=== PATIENT | male | born 1965 | race Caucasian/White ===

== ENCOUNTER 2020-03-14 19:03 | Emergency (ER) | payer OTHER ==
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
[2020-03-14] MEDS ORDERED: CEPHALEXIN 250 MG CAP ONE ×2 (20:36→20:41)
== END 2020-03-14 21:19 | disposition home or self-care (01) ==
LOC: ER 19:03
DX: T23.202A Burn of second degree of left hand, unspecified site, initial encounter (principal); X08.8XXA Exposure to other specified smoke, fire and flames, initial encounter; Y93.9 Activity, unspecified; Y92.89 Other specified places as the place of occurrence of the external cause; I10 Essential (primary) hypertension; E11.9 Type 2 diabetes mellitus without complications
CPT/HCPCS: 99282

== ENCOUNTER 2020-09-14 11:59 | Inpatient (IN) | payer OTHER ==
--- OUTSIDE RECORDS SUMMARY | 2020-09-14 12:01 | XMS REPORT | Continuity of Care Document ---
:1965 Author Organization [facility] t Address [address] [place] [address] Care Team Providers Name Role Phone Luz Murdock MD Attending Clinician Willie GR Attending Clinician Room, Therapy [facility] Attending Clinician Unavailable Problems This patient has no known problems. Allergies, Adverse Reactions, Alerts This patient has no known allergies or adverse reactions. Medications This patient has no known medications. Procedures This patient has no known procedures. Encounters Start End Encounter Admission Attending Care Care Encounter Source Date/Time Date/Time Type Type Clinicians Facility Department ID 2020-04-06 2020-04-06 Telephone Ilir Murdock [id number] 00:00:00 00:00:00 Vinay [id number] [facility] [id number] 2020-04-04 2020-04-04 [facility] TapiaHermila [id number] 12:30:00 23:59:00 Encounter Ganesh Mclean [id number] [facility] [id number] 2020-03-21 2020-03-30 Ancillary Hermila Davidson [id number] 14:30:00 07:35:19 Visit Radha Mclean [id number] Therapy [facility] [id number] Results This patient has no known results.
[2020-09-14 12:55] LABS: Absolute Lymphocytes (CBC) 1.5 K/uL (0.7-4.9); Basophils % 1.5 % (0-1.3); Hematocrit 31.8 % (39.6-49.0); Lymphocytes % 34.1 % (15.3-44.8); MPV 9.1 fL (7.6-11.3); RBC Red Blood Cell Count 4.43 M/uL (4.33-5.43)
[2020-09-14] MEDS ORDERED: dilTIAZem HCL 25 MG/5 ML VIAL IV ONE (12:55)
[2020-09-14 12:57] LABS: Protime INR 1.29
[2020-09-14 13:13] LABS: ALT/SGPT 35 U/L (12-78); AST/SGOT 67 U/L (15-37); Albumin 3.6 g/dL (3.4-5.0); Alkaline Phosphatase 157 U/L (45-117); BUN Blood Urea Nitrogen 5 mg/dL (7-18); Bicarbonate 29 mmol/L (21-32); Bilirubin Direct 0.9 mg/dL (0-0.2); Bilirubin Total 1.6 mg/dL (0.2-1.0); Glucose Level 138 mg/dL (74-106); Magnesium 1.5 mg/dL (1.8-2.4); NT PRO-BNP 238 pg/mL (<125); Potassium 3.9 mmol/L (3.5-5.1); Protein, Total 7.5 g/dL (6.4-8.2); Sodium Level 139 mmol/L (136-145); Troponin (Emerg Dept Use Only) < 0.02 ng/mL (0.0-0.045)
--- NOTE | 2020-09-14 13:32 | RAD REPORT ---
EXAM DESCRIPTION: RAD - Chest Single View - 09/14/2020 1:14 pm CLINICAL HISTORY: CHEST PAIN, atrial fibrillation on pre-procedure EKG COMPARISON: None TECHNIQUE: AP portable chest image was obtained 09/14/2020 1:14 pm . FINDINGS: Lung volumes are relatively low with lung kingsley clear. Body habitus, portable technique a nd low lung volumes accentuate heart, vasculature and central lung markings. Significant failure or v olume overload are doubtful. Trachea is midline. Heart size is enlarged by exam limitations. No measu rable pleural effusion and no pneumothorax. No acute bony abnormality seen. No acute aortic findings suspected. IMPRESSION: No acute cardiopulmonary process.
[2020-09-14 13:33] LABS: Anisocytosis SLIGHT; Blood Morphology Comment NOTED (NOT SEEN); Hypochromasia 1+; Platelet Estimate ADEQ
[2020-09-14] MEDS ORDERED: Magnesium Sulfate 2gm IVPB 2 G/50 ML BAG IV ONE (13:35)
[2020-09-14] MEDS ORDERED: METOPROLOL TARTRATE 5 MG/5 ML INJ IV ONE (14:13)
--- NOTE | 2020-09-14 14:56 | ER ---
Nurse's Notes [facility] Name: Mohamud Garcia Age: 55 yrs Sex: Male : 1965 Arrival Date: 09/14/2020 Time: 12:01 Bed 19 Private MD: Diagnosis: Atrial Fibrillation with RVR Presentation: 09/14 12:18 Chief complaint: Patient states: "I was supposed to have a EGD today and they did an aa5 EKG on me and they told me to come here for A-fib". Pt denies any symptoms. 12:18 Coronavirus screen: Client denies travel out of the [place] in the last 14 days. The aa5 client reports previous COVID testing was negative. Date of collection: September 07, 2020. Ebola Screen: Patient negative for fever greater than or equal to 101.5 degrees Fahrenheit, and additional compatible Ebola Virus Disease symptoms. Initial Sepsis Screen: Does the patient meet any 2 criteria? No. Patient's initial sepsis screen is negative. Does the patient have a suspected source of infection? No. Patient's initial sepsis screen is negative. Risk Assessment: Do you want to hurt yourself or someone else? Patient reports no desire to harm self or others. Onset of symptoms was September 14, 2020. 12:18 Acuity: SUZI 2 aa5 12:18 Method Of Arrival: Ambulatory aa5 Historical: - Allergies: 12:19 No Known Allergies; aa5 - PMHx: 12:19 Diabetes - NIDDM; Gastric Reflux; Hypertension; aa5 - PSHx: 12:19 None; aa5 - Immunization history:: Adult Immunizations unknown. - Social history:: Smoking status: Patient denies any tobacco usage or history of. Screenin:55 Abuse screen: Denies threats or abuse. Nutritional screening: No deficits noted. ll1 Tuberculosis screening: No symptoms or risk factors identified. Fall Risk IV access (20 points). Total Villegas Fall Scale indicates No Risk (0-24 pts). Assessment: 12:54 General: Appears in no apparent distress. Behavior is calm, cooperative, appropriate ll1 for age. Pain: Denies pain. Pain: Pain does not radiate. Pain began unknown. Neuro: No deficits noted. Cardiovascular: Denies chest pain, shortness of breath, Heart tones S1 S2 Capillary refill < 3 seconds Clubbing of nail beds is absent JVD is absent Patient's skin is warm and dry. Pulses are all present. Rhythm is atrial fibrillation with rapid ventricular response Chest pain is denied. Respiratory: No deficits noted. Denies shortness of breath. 13:29 Reassessment: Patient and/or family updated on plan of care and expected duration. Pain ll1 level reassessed. Patient is alert, oriented x 3, equal unlabored respirations, skin warm/dry/pink. 14:30 Reassessment: Patient and/or family updated on plan of care and expected duration. Pain ll1 level reassessed. Patient is alert, oriented x 3, equal unlabored respirations, skin warm/dry/pink. 15:30 Reassessment: Patient and/or family updated on plan of care and expected duration. Pain ll1 level reassessed. Patient is alert, oriented x 3, equal unlabored respirations, skin warm/dry/pink. 16:30 Reassessment: Patient and/or family updated on plan of care and expected duration. Pain ll1 level reassessed. Patient is alert, oriented x 3, equal unlabored respirations, skin warm/dry/pink. Vital Signs: 12:18 BP 159 / 104; Pulse 140; Resp 18 S; Temp 98.4(TE); Pulse Ox 100% on R/A; Weight 99.79 aa5 kg (R); Height 5 ft. 7 in. (170.18 cm) (R); Pain 0/10; 12:53 BP 124 / 66; Pulse 113; Resp 18; Pulse Ox 99% ; ll1 14:13 BP 122 / 85; Pulse 130; Resp 18; ll1 15:04 BP 120 / 81; Pulse 100; Resp 18; Pulse Ox 100% on R/A; Pain 0/10; ll1 16:00 BP 125 / 84; Pulse 100; Resp 18; Pulse Ox 99% ; ll1 17:09 BP 112 / 87; Pulse 103; Resp 18; Temp 98.0; Pulse Ox 98% ; Pain 0/10; ll1 12:18 Body Mass Index 34.46 (99.79 kg, 170.18 cm) aa5 Vitals: 12:53 Cardiac Rhythm Assessment Atrial fibrillation W/rapid ventricular response. ll1 ED Course: 12:01 Patient arrived in ED. ds1 12:15 Inserted saline lock: 20 gauge in right antecubital area, using aseptic technique. ll1 Blood collected. 12:19 Arm band placed on. aa5 12:21 Triage completed. aa5 12:24 Carmelo Enriquez RN is Primary Nurse. 1 12:34 EKG completed in triage. Results shown to MD. aa5 12:35 Jerardo Holbrook PA is PHCP. jmm 12:35 Maximiliano Lerma MD is Attending Physician. [facility] 12:55 Patient has correct armband on for positive identification. Bed in low position. Call ll1 light in reach. Side rails up X 1. court recording monitor on. Pulse ox on. NIBP on. 12:55 Patient maintains SpO2 saturation greater than 95% on room air. ll1 13:14 XRAY Chest (1 view) In Process Unspecified. EDMS 13:37 EKG done, by ED staff, reviewed by Maximiliano Lerma MD. [facility] 14:53 Leonardo Saldaña MD is Hospitalizing Provider. [facility] 17:22 No provider procedures requiring assistance completed. Patient admitted, IV remains in ll1 place. Administered Medications: 12:52 Drug: Diltiazem 20 mg Route: IVP; Site: right antecubital; 1 13:29 Follow up: Response: No adverse reaction; RASS: Alert and Calm (0) [facility] 13:28 Drug: Magnesium Sulfate 2 grams Route: IVPB; Infused Over: 2 hrs; Site: right ll1 antecubital; 15:03 Follow up: Response: No adverse reaction; RASS: Alert and Calm (0); IV Status: ll1 Completed infusion; IV Intake: 50ml 14:13 Drug: Metoprolol 5 mg Route: IVP; Site: right antecubital; 1 17:23 Follow up: Response: No adverse reaction; RASS: Alert and Calm (0) [facility] Intake: 15:03 IV: 50ml; Total: 50ml. 1 Outcome: 14:55 Decision to Hospitalize by Provider. [facility] 17:23 Admitted to Med/surg accompanied by tech, via wheelchair, room RM 223, with chart, 1 Report called to NATALYA Chung on 17:23 Condition: stable 17:23 Instructed on the need for admit. 17:24 Patient left the ED. [facility] Signatures: Dispatcher [employer] EDMS MicJerardo araiza PA PA jmm Sanford, Demi ds1 Melly Ellis RN RN aa5 Danay Mccoy 3 Carmelo Enriquez RN RN ll1 Corrections: (The following items were deleted from the chart) 12:36 12:18 Chief complaint: Patient states: "I was supposed to have a ECG today and they did aa5 an EKG on me and they told me to come here for A-fib". Pt denies any symptoms. aa5
--- NOTE | 2020-09-14 14:56 | EDPHYS ---
Physician Documentation [facility] Name: Mohamud Garcia Age: 55 yrs Sex: Male : 1965 Arrival Date: 09/14/2020 Time: 12:01 Bed 19 Private MD: ED Physician Maximiliano Lerma HPI: 09/14 12:36 This 55 yrs old Male presents to ER via Ambulatory with complaints of jmm Irregular Pulse. 12:36 Context: The symptoms occur without known cause. Onset: The symptoms/episode jmm began/occurred at an unknown time. Duration: The patient or guardian reports a single episode. Modifying factors: The symptoms are aggravated by nothing. The symptoms are alleviated by nothing. Associated signs and symptoms: The patient has no apparent associated signs or symptoms. The patient has not experienced similar symptoms in the past. The patient has been recently seen by a physician:. Historical: - Allergies: 12:19 No Known Allergies; aa5 - PMHx: 12:19 Diabetes - NIDDM; Gastric Reflux; Hypertension; aa5 - PSHx: 12:19 None; aa5 - Immunization history:: Adult Immunizations unknown. - Social history:: Smoking status: Patient denies any tobacco usage or history of. ROS: 12:36 Constitutional: Negative for fever, chills, and weight loss, Cardiovascular: Negative jmm for chest pain, palpitations, and edema, Respiratory: Negative for shortness of breath, cough, wheezing, and pleuritic chest pain, Abdomen/GI: Negative for abdominal pain, nausea, vomiting, diarrhea, and constipation, Neuro: Negative for headache, weakness, numbness, tingling, and seizure. 12:36 All other systems are negative. Exam: 12:36 Constitutional: This is a well developed, well nourished patient who is awake, alert, jmm and in no acute distress. Head/Face: atraumatic. Eyes: EOMI, no conjunctival erythema appreciated ENT: Moist Mucus Membranes Neck: Trachea midline, Supple Chest/axilla: Normal chest wall appearance and motion. 12:36 Respiratory: Normal respirations, no respiratory distress appreciated Abdomen/GI: Non distended, soft Back: Normal ROM Skin: General appearance color normal MS/ Extremity: Moves all extremities, no obvious deformities appreciated, no edema noted to the lower extremities Neuro: Awake and alert, normal gait Psych: Behavior is normal, Mood is normal, Patient is cooperative and pleasant 12:36 Cardiovascular: Rate: tachycardic, Rhythm: irregular. Vital Signs: 12:18 BP 159 / 104; Pulse 140; Resp 18 S; Temp 98.4(TE); Pulse Ox 100% on R/A; Weight 99.79 aa5 kg (R); Height 5 ft. 7 in. (170.18 cm) (R); Pain 0/10; 12:53 BP 124 / 66; Pulse 113; Resp 18; Pulse Ox 99% ; ll1 14:13 BP 122 / 85; Pulse 130; Resp 18; ll1 15:04 BP 120 / 81; Pulse 100; Resp 18; Pulse Ox 100% on R/A; Pain 0/10; ll1 16:00 BP 125 / 84; Pulse 100; Resp 18; Pulse Ox 99% ; ll1 17:09 BP 112 / 87; Pulse 103; Resp 18; Temp 98.0; Pulse Ox 98% ; Pain 0/10; ll1 12:18 Body Mass Index 34.46 (99.79 kg, 170.18 cm) aa5 MDM: 12:39 Patient medically screened. [facility] 14:52 Data reviewed: vital signs, nurses notes. Counseling: I had a detailed discussion with [facility] the patient and/or guardian regarding: the historical points, exam findings, and any diagnostic results supporting the discharge/admit diagnosis, lab results, radiology results, the need for further work-up and treatment in the hospital. ED course: I discussed the patient with Dr. Saldaña whom accepted admission. . 09/14 12:36 Order name: Basic Metabolic Panel; Complete Time: 13:14 [facility] 09/14 12:36 Order name: CBC with Diff; Complete Time: 13:34 [facility] 09/14 12:36 Order name: LFT's; Complete Time: 13:14 [facility] 09/14 12:36 Order name: Magnesium; Complete Time: 13:14 [facility] 09/14 12:36 Order name: NT PRO-BNP; Complete Time: 13:14 [facility] 09/14 12:36 Order name: PT-INR; Complete Time: 13:08 [facility] 09/14 12:36 Order name: Troponin (emerg Dept Use Only); Complete Time: 13:14 [facility] 09/14 12:36 Order name: XRAY Chest (1 view); Complete Time: 13:34 [facility] 09/14 12:36 Order name: EKG; Complete Time: 12:36 [facility] 09/14 12:57 Order name: Manual Differential; Complete Time: 13:34 [facility] 09/14 13:47 Order name: EKG Electrocardiogram; Complete Time: 14:04 [facility] 09/14 12:36 Order name: Cardiac monitoring; Complete Time: 12:40 [facility] 09/14 12:36 Order name: EKG - Nurse/Tech; Complete Time: 12:40 [facility] 09/14 12:36 Order name: IV Saline Lock; Complete Time: 12:39 [facility] 09/14 12:36 Order name: Labs collected and sent; Complete Time: 12:39 [facility] 09/14 12:36 Order name: O2 Per Protocol; Complete Time: 12:39 [facility] 09/14 12:36 Order name: O2 Sat Monitoring; Complete Time: 12:39 [facility] 09/14 13:15 Order name: EKG - Nurse/Tech; Complete Time: 13:38 [facility] 09/14 14:24 Order name: EKG - Nurse/Tech; Complete Time: 15:05 [facility] 09/14 15:23 Order name: CONS Physician Consult EDAR Administered Medications: 12:52 Drug: Diltiazem 20 mg Route: IVP; Site: right antecubital; 1 13:29 Follow up: Response: No adverse reaction; RASS: Alert and Calm (0) ll1 13:28 Drug: Magnesium Sulfate 2 grams Route: IVPB; Infused Over: 2 hrs; Site: right ll1 antecubital; 15:03 Follow up: Response: No adverse reaction; RASS: Alert and Calm (0); IV Status: ll1 Completed infusion; IV Intake: 50ml 14:13 Drug: Metoprolol 5 mg Route: IVP; Site: right antecubital; 1 17:23 Follow up: Response: No adverse reaction; RASS: Alert and Calm (0) ll1 Disposition: 09/15 05:32 Co-signature as Attending Physician, Maximiliano Lerma MD I agree with the assessment and jacky plan of care. Disposition: 09/14/20 14:55 Hospitalization ordered by Leonardo Saldaña for Observation. Preliminary diagnosis is Atrial Fibrillation with RVR. - Bed requested for Telemetry/MedSurg (observation). - Status is Observation. ll1 - Condition is Stable. - Problem is new. - Symptoms have improved. Signatures: Dispatcher [employer] EDTeri Luna, RN Maximiliano Pinto MD MD cha Mickail, Joel, PA PA jmm Calderon, Audri, NATALYA HOANG aa5 Carmelo Enriquez, NATALYA RN ll1 Corrections: (The following items were deleted from the chart) 09/14 16:57 14:55 Hospitalization Ordered by Leonardo Saldaña MD for Observation. Preliminary diagnosis is Atrial Fibrillation with RVR. Bed requested for Telemetry/MedSurg (observation). Status is Observation. Condition is Stable. Problem is new. Symptoms have improved. [facility] 17:24 16:57 09/14/2020 14:55 Hospitalization Ordered by Leonardo Saldaña MD for Observation. ll1 Preliminary diagnosis is Atrial Fibrillation with RVR. Bed requested for Telemetry/MedSurg (observation). Status is Observation. Condition is Stable. Problem is new. Symptoms have improved. kl
--- NOTE | 2020-09-14 15:36 | P.HP ---
Certification for Inpatient Patient admitted to: Observation With expected LOS: <2 Midnights Practitioner: I am a practitioner with admitting privileges, knowledge of patient current condition, hospital course, and medical plan of care. Services: Services provided to patient in accordance with Admission requirements found in Title 42 Section 412.3 of the Code of Federal Regulations Patient History Date of Service: 09/14/20 History of Present Illness: 55yo male, PMH: HTN, DM2 (non-insulin), GERD, who was sent to ED from GI suite after found to be in afib with RVR. Patient reports he feels like his normal self, asymptomatic. Denies any palpitations, chest pain, chest pressure, shortness of breath. He reports no prior history of AFib. He was scheduled to undergo EGD to evaluate for his acid reflux, however this was canceled. Patient's heart rate was noted to 140s, received Cardizem in the ED with minimal improvement, and received IV Lopressor which brought patient's heart rate down to 100-120s. Patient still remains asymptomatic Blood work notable for microcytic anemia, End hypomagnesemia (1.5), negative troponin Allergies No Known Allergies Allergy (Unverified 12/11/18 11:59) - Past Medical/Surgical History -: Hypertension -: Diabetes mellitus type 2, [id number] -: GERD Past Surgical History: Patient denies surgical history - Family History Mother -: Hypertension - Social History Smoking Status: Never smoker Alcohol use: Yes Place of Residence: Home Review of Systems 10-point ROS is otherwise unremarkable Physical Examination - Physical Exam General: Alert, In no apparent distress, Oriented x3 HEENT: Mucous membr. moist/pink, Sclerae nonicteric Neck: Supple Respiratory: Clear to auscultation bilaterally, Normal air movement Cardiovascular: No edema, No murmurs, Irregular heart rate/rhythm (HR: 100-120s) Gastrointestinal: Soft and benign, Non-distended, No tenderness Musculoskeletal: No tenderness Integumentary: No rashes Neurological: Normal speech, Normal affect - Studies Laboratory Data (last 24 hrs) 09/14/20 12:35: PT 15.1 H, INR 1.29 09/14/20 12:35: WBC 4.4, Hgb 9.7 L, Hct 31.8 L, Plt Count 176 11/11/20 12:35: Sodium 139, Potassium 3.9, BUN 5 L, Creatinine 0.69, Glucose 138 H, Magnesium 1.5 L, Total Bilirubin 1.6 H, AST 67 H, ALT 35, Alkaline Phosphatase 157 H Assessment and Plan - Advance Directives Does patient have a Living Will: No Does patient have a Durable POA for Healthcare: No Physician Review Additional Text: New onset AFib, with RVR Hypertension Diabetes mellitus type 2. GERD -partially responded to IV lopressor in ED -cardiology consulted -start sotalol 80mg BID -check TTE and TSH -CHADSVASc: 2, reports no history of bleed -will start patient on xarelto for anticoagulation -hold antihypertensives at this time, pt with low-normal BP, did not take meds this AM -insulin sliding scale, hold home metformin Code: full VTE: Xarelto Dispo: anticipate dc home in 24-48hrs pending improvement of heart rate Time Spent Managing Pts Care (In Minutes): 55
[2020-09-14] MEDS: INSULIN -REGULAR HUMAN 50 UNIT/0.5 ML ML SQ SCH ×2 (17:42→20:57)
[2020-09-14 17:45] VITALS: BMI 34.4
[2020-09-14 17:51] VITALS: O2SAT 98
--- NOTE | 2020-09-14 18:03 | EKG ---
Test Date: 2020-09-14 Test Time: 12:31:35 Sample Cutter: MIROSLAVA MEASUREMENT RESULTS: Intervals: Rate: 146 MA: QRSD: 84 QT: 260 QTc: 405 [place]: P: MA: QRS: 59 T: 45 INTERPRETIVE STATEMENTS: Atrial fibrillation with rapid ventricular response Abnormal ECG No previous ECG available for comparison Electronically Signed On 09-14-20 18:02:30 FLAT BED KNITTER by Jan Colorado
--- NOTE | 2020-09-14 18:03 | EKG ---
Test Date: 2020-09-14 Test Time: 13:33:39 Data Analysis Intern: CHRISTOPHER MEASUREMENT RESULTS: Intervals: Rate: 130 [place]: QRSD: 70 QT: 310 QTc: 456 [place]: P: [place]: QRS: 57 T: 64 INTERPRETIVE STATEMENTS: Atrial fibrillation with rapid ventricular response Septal infarct, age undetermined Abnormal ECG Compared to ECG 09/14/2020 12:31:35 Myocardial infarct finding now present Electronically Signed On 09-14-20 18:02:26 PRODUCT SAFETY MANAGER by Jan Colorado
[2020-09-14] MEDS: SOTALOL HCL 80 MG TAB PO SCH (18:07)
[2020-09-14] MEDS: RIVAROXABAN 20 MG TABLET PO SCH (18:07)
[2020-09-14 19:02] LABS: Thyroid Stimulating Hormone 2.34 uIU/mL (0.360-3.740)
[2020-09-14 19:37] LABS: Urine Appearance CLEAR; Urine Bilirubin NEGATIVE (NEG); Urine Blood NEGATIVE (NEG); Urine Color YELLOW; Urine Glucose NEGATIVE (NEG); Urine Protein NEGATIVE (NEG); Urine pH 7.5 (5.0-7.0)
[2020-09-14 19:40] LABS: Urine Microscopic Reflex NO UMIC
[2020-09-14] MEDS ORDERED: INFLUENZA VACCINE (for 3y+) 0.5 ML DOSE IMVAC ONE (20:00)
[2020-09-15 04:43] LABS: Absolute Lymphocytes (CBC) 1.4 K/uL (0.7-4.9); Hematocrit 30.3 % (39.6-49.0); Lymphocytes % 32.5 % (15.3-44.8); MPV 8.7 fL (7.6-11.3)
[2020-09-15] MEDS: SOTALOL HCL 80 MG TAB PO SCH ×2 (05:17→17:04)
[2020-09-15 06:31] LABS: BUN Blood Urea Nitrogen 7 mg/dL (7-18); Bicarbonate 28 mmol/L (21-32); Ferritin 12.7 ng/mL (26-388); Glucose Level 122 mg/dL (74-106); Magnesium 1.5 mg/dL (1.8-2.4); Sodium Level 139 mmol/L (136-145); Transferrin 300 mg/dL (200-360)
[2020-09-15] MEDS ORDERED: Magnesium Sulfate 2gm IVPB 2 G/50 ML BAG IV ONE (06:52)
[2020-09-15 07:14] LABS: Phosphorus 3.7 mg/dL (2.5-4.9)
[2020-09-15] MEDS ORDERED: NA CHLORIDE 0.9% 250 ML ONE (07:28)
[2020-09-15] MEDS: INSULIN -REGULAR HUMAN 50 UNIT/0.5 ML ML SQ SCH ×3 (07:30→16:30)
--- NOTE | 2020-09-15 13:37 | ECHO ---
HEIGHT: 5 ft 7 in WEIGHT: 220 lb 0 oz DATE OF STUDY: 09/15/[address]: Leonardo Saldaña MD 2-DIMENSIONAL: YES M.MODE: YES DOPPLER: YES COLOR FLOW: YES TDS: NO PORTABLE: NO DEFINITY: NO BUBBLE STUDY: NO DIAGNOSIS: NEW ONSET ATRIAL FIBRILLATION CARDIAC HISTORY: CATHERIZATION: NO SURGERY: NO PROSTHETIC VALVE: NO PACEMAKER: NO MEASUREMENTS (cm) DIASTOLIC (NORMALS) SYSTOLIC (NORMALS) IVSd 1.1 (0.6-1.2) LA Diam 4.3 (1.9-4.0) LVEF 54% LVIDd 4.9 (3.5-5.7) LVIDs 3.5 (2.0-3.5) %FS 28% LVPWd 1.3 (0.6-1.2) Ao Diam 3.7 (2.0-3.7) 2 DIMENSIONAL ASSESSMENT: RIGHT ATRIUM: NORMAL LEFT ATRIUM: ENLARGED RIGHT VENTRICLE: NORMAL LEFT VENTRICLE: NORMAL TRICUSPID VALVE: NORMAL MITRAL VALVE: NORMAL PULMONIC VALVE: NORMAL AORTIC VALVE: NORMAL PERICARDIAL EFFUSION: NONE AORTIC ROOT: NORMAL LEFT VENTRICULAR WALL MOTION: NORMAL. DOPPLER/COLOR FLOW: NORMAL. COMMENTS: NORMAL LEFT VENTRICULAR EJECTION FRACTION 55-60%. NORMAL WALL MOTION. LEFT ATRIAL ENLARGEMENT. TECHNOLOGIST: ANDREW CARDENAS
[2020-09-15 16:59] VITALS: BP 147/99; TEMP 97.7
[2020-09-15] MEDS: RIVAROXABAN 20 MG TABLET PO SCH (17:04)
--- NOTE | 2020-09-15 21:34 | P.DS ---
"Admission Date: 09/14/20 Discharge Date: 09/15/20 Disposition: ROUTINE DISCHARGE Discharge Condition: GOOD Consultations: Cardiology - Dr. Colorado Procedures: CXR (09/14): no acute cardiopulmonary process TTE (09/14): normal LVEF 55-60%, normal wall motion. left atrial enlargement Problem list New onset AFib, with RVR Iron deficiency anemia (new diagnosis) Hypomagnesemia Hypertension Diabetes mellitus type 2, non-insulin dependent GERD Brief History of Present Illness: 55yo male, PMH: HTN, DM2 (non-insulin), GERD, who was sent to ED from GI suite after he was found to be in afib with RVR. Patient reports he feels like his normal self, asymptomatic. Denies any palpitations, chest pain, chest pressure, shortness of breath. He reports no prior history of AFib. He was scheduled to undergo EGD to evaluate for his acid reflux, however this was canceled. Patient's heart rate was noted to 140s, received Cardizem in the ED with minimal improvement, and received IV Lopressor which brought patient's heart rate down to 100-120s. Patient still remains asymptomatic. Blood work notable for microcytic anemia, hypomagnesemia (1.5), negative troponin Hospital Course: Patient was started on sotalol 80mg BID, cardiology was consulted. His heart rate improved and ranged from 90s-110s. He remained asymptomatic and was adamant on being discharged home today. He received 3 doses of sotalol, was asymptomatic, feeling well, so he was discharged home to have close follow up with cardiology, Dr. Colorado. He did undergo TTE which revealed left atrial enlargement. He has a CHADSVASc score of 2, and was started on Xarelto. Workup also notable for microcytic anemia consistent with moderate iron deficiency. He was offered IV iron replacement, however declined, and was amenable to PO replacement on discharge. He was also noted to be hypomagnesemic at 1.5 on admission, improved to 1.6 after 2g IV Mg replacement. He is discharged on magnesium supplementation and advised to f/u with PCP to check levels. Hgb: 9.7, MCV: 71.8, Hypochromasia noted Iron: 23 | TIBC: 420 | Transferrin % sat: 5.5 | Ferritin: 12.7 TSH: 2.34, Free T4: 1.4 Vital Signs/Physical Exam: Temp Pulse Resp BP Pulse Ox 97.7 F 115 H 16 147/99 H 98 09/15/20 16:00 09/15/20 16:00 09/15/20 16:00 09/15/20 16:00 09/15/20 16:00 General: Alert, In no apparent distress, Oriented x3, Obese HEENT: Mucous membr. moist/pink, Sclerae nonicteric Neck: Supple Respiratory: Clear to auscultation bilaterally, Normal air movement Cardiovascular: No edema, No murmurs, Irregular heart rate/rhythm (HR: 100) Gastrointestinal: Soft and benign, Non-distended, No tenderness Musculoskeletal: No tenderness Integumentary: No rashes Neurological: Normal speech, Normal affect Laboratory Data at Discharge: WBC 4.3 K/uL (4.3-10.9) 09/15/20 04:20 Hgb 9.3 g/dL (13.6-17.9) L 09/15/20 04:20 Hct 30.3 % (39.6-49.0) L 09/15/20 04:20 Plt Count 168 K/uL (152-406) 09/15/20 04:20 PT 15.1 SECONDS (9.5-12.5) H 09/14/20 12:35 INR 1.29 09/14/20 12:35 Sodium 139 mmol/L (136-145) 09/15/20 04:20 Potassium 4.0 mmol/L (3.5-5.1) 09/15/20 04:20 BUN 7 mg/dL (7-18) 09/15/20 04:20 Creatinine 0.73 mg/dL (0.55-1.3) 09/15/20 04:20 Glucose 122 mg/dL (74-106) H 09/15/20 04:20 Phosphorus 3.7 mg/dL (2.5-4.9) 09/15/20 04:20 Magnesium 1.6 mg/dL (1.8-2.4) L 09/15/20 16:31 Total Bilirubin 1.6 mg/dL (0.2-1.0) H 09/14/20 12:35 AST 67 U/L (15-37) H 09/14/20 12:35 ALT 35 U/L (12-78) 09/14/20 12:35 Alkaline Phosphatase 157 U/L (45-117) H 09/14/20 12:35 Home Medications: Amlodipine [Norvasc*] 5 mg PO DAILY 09/15/20 Ferrous Sulfate 325 mg PO DAILY #30 tablet 09/15/20 Lisinopril [Zestril] 10 mg PO DAILY 09/15/20 Magnesium Chloride [Magnesium] 64 mg PO DAILY 30 Days #30 tablet 09/15/20 Metformin HCl 1,000 mg PO BID 09/15/20 Omeprazole [Prilosec] 40 mg PO DAILY 09/15/20 Rivaroxaban [Xarelto] 20 mg PO DAILY 30 Days #30 tablet 09/15/20 Sotalol HCl [Betapace*] 80 mg PO BID 30 Days #60 tab 09/15/20 New Medications: Sotalol HCl [Betapace*] 80 mg PO BID 30 Days #60 tab Ferrous Sulfate 325 mg PO DAILY #30 tablet Magnesium Chloride [Magnesium] 64 mg PO DAILY 30 Days #30 tablet Rivaroxaban [Xarelto] 20 mg PO DAILY 30 Days #30 tablet Patient Discharge Instructions: follow up with PCP within 1 week - recheck Magnesium levels, and continue iron deficiency treatment. follow up with Dr. Colorado within 1-2 weeks. call his office to schedule appointment. --medications on discharge: Xarelto 20mg daily (blood thinner) -- Sotalol 80mg twice a day -- Magnesium once a day -- Iron 325mg once a day Diet: Regular Activity: Ad palak Followup: Claudio Begum PA [Primary Care Provider] - Time spent managing pt's care (in minutes): 35"
--- NOTE | 2020-09-18 03:06 | CON ---
Date of Consultation: 09/14/2020 Reason For Consultation: Atrial fibrillation with rapid ventricular response. History Of Present Illness: Mr. Garcia is a 55-year-old white male, who has a history of diabetes, g astroesophageal reflux disease, and hypertension, no previous coronary artery disease, came in with a regular pulse, was found to be in atrial fibrillation at a rate of 140. He had a blood pressure of 159/104. He was having palpitations and shortness of breath, but denied any chest pain, nausea, vomi ting, diaphoresis, PND, orthopnea, pedal edema, or syncope. Denied any fever or chills. Past Medical History: As stated above. Allergies: NONE. Review of Systems: Negative. Social History: Negative. Family History: Noncontributory. Medications: At home included amlodipine, iron, lisinopril, magnesium, metformin, and Prilosec. Physical Examination: VITAL SIGNS: He was in atrial fibrillation. Otherwise, vital signs stable. Afebrile. HEENT: Negative. Neck: Supple with no bruit. Chest: Clear to auscultation and percussion. Cardiac: Regular rhythm and rate. No murmurs, gallops, or rubs. Abdomen: Benign. Extremities: No clubbing, cyanosis, or edema. Diagnostic Data: He had a magnesium 1.6, that needs to be supplemented. His glucose was 132. Rest of the blood work was fairly unremarkable except for some mild anemia of 9.7. His creatinine was 0.7 3. Impression And Plan: Paroxysmal atrial fibrillation. We should put him on sotalol 80 mg 1 p.o. twic e a day. We should start him Xarelto 20 daily. We should get an echocardiogram. Check his TSH. Co ntinue his other medication for reflux, diabetes, and hypertension. I am hoping that this will conve rt him in the next week or so. I will see him in the office in the next week or so and if he remains in atrial fibrillation, we will consider a direct current cardioversion. JENNIFER/AUGUSTUS Voice ID: [id number] Report ID: [id number]
--- NOTE | 2020-09-18 07:54 | EKG ---
Test Date: 2020-09-14 Test Time: 14:40:33 Securities Broker: CHRISTOPHER MEASUREMENT RESULTS: Intervals: Rate: 100 [place]: QRSD: 86 QT: 320 QTc: 412 [place]: P: WI: QRS: 52 T: 50 INTERPRETIVE STATEMENTS: Atrial fibrillation Abnormal ECG Compared to ECG 09/14/2020 13:33:39 Myocardial infarct finding no longer present Electronically Signed On 09-18-20 07:42:42 [employer] PIPE MANUFACTURING SUPERVISOR by Jan Colorado
== END 2020-09-15 18:33 | disposition home or self-care (01) | DRG 310 ==
LOC: ER 11:59 → ERHOLD 15:21 → 2ND 17:17 → OBSVTOIN 23:13
PROVIDERS: ADMIT Hospitalist; ATTEND Hospitalist
DX: I48.0 Paroxysmal atrial fibrillation (principal); E11.9 Type 2 diabetes mellitus without complications; I10 Essential (primary) hypertension; K21.9 Gastro-esophageal reflux disease without esophagitis; D50.9 Iron deficiency anemia, unspecified; E83.42 Hypomagnesemia; Z53.29 Procedure and treatment not carried out because of patient's decision for other reasons; Z20.828 Contact with and (suspected) exposure to other viral communicable diseases
CPT/HCPCS: 36415; 71045; 80048; 80076; 81003; 82728; 82947; 83540; 83735; 83880; 84100; 84439; 84443; 84466; 84484; 85025; 85610; 93005; 93306; 94760; 96365; 96366; 96375; 99285; G0378; J3475; J7050; U0002

== ENCOUNTER 2020-10-19 06:28 | Day surgery (SDC) | payer OTHER ==
[2020-10-14 15:27] LABS: Protime INR 2.32
[2020-10-14 15:32] LABS: BUN Blood Urea Nitrogen 7 mg/dL (7-18); Bicarbonate 31 mmol/L (21-32); Glucose Level 119 mg/dL (74-106); Potassium 3.8 mmol/L (3.5-5.1); Sodium Level 140 mmol/L (136-145)
[2020-10-14 16:39] LABS: Absolute Lymphocytes (CBC) 1.2 K/uL (0.7-4.9); Basophils % 1.9 % (0-1.3); Hematocrit 31.3 % (39.6-49.0); Lymphocytes % 27.9 % (15.3-44.8); RBC Red Blood Cell Count 4.25 M/uL (4.33-5.43)
[2020-10-14 21:16] LABS: Anisocytosis 2+; Blood Morphology Comment NOTED (NOT SEEN); Hypochromasia 1+; Platelet Estimate ADEQ; Polychromasia 1+; White Blood Cell Scan OK (OK)
--- OUTSIDE RECORDS SUMMARY | 2020-10-19 06:29 | XMS REPORT | Continuity of Care Document ---
:1965 Author Organization [facility] t Address [address] [place] [address] Care Team Providers Name Role Phone Luz Murdock MD Attending Clinician Willie GR Attending Clinician Room, Therapy [facility] Attending Clinician Unavailable Problems This patient has no known problems. Allergies, Adverse Reactions, Alerts This patient has no known allergies or adverse reactions. Medications This patient has no known medications. Procedures This patient has no known procedures. Encounters Start End Encounter Admission Attending Care Care Encounter Source Date/Time Date/Time Type Type Clinicians Facility Department ID 2020-04-06 2020-04-06 Telephone Ilir Murdock [id number] 00:00:00 00:00:[id number] [facility] [id number] 2020-04-04 2020-04-04 [facility] TapiaHermila [id number] 12:30:00 23:59:00 Encounter Ganesh Mclean [id number] [facility] [id number] 2020-03-21 2020-03-30 Ancillary Hermila Davidson [id number] 14:30:00 07:35:19 Visit Radha Mclean [id number] Therapy [facility] [id number] Results This patient has no known results.
[2020-10-19] MEDS ORDERED: NA CHLORIDE 0.9% 500 ML ONE (07:32)
[2020-10-19] MEDS ORDERED: FLUMAZENIL 0.1 MG/ML (5 mL VIAL) IV ONE (08:35)
[2020-10-19] MEDS ORDERED: MIDAZOLAM HCL 5 MG/5 ML INJ ONE (08:35)
[2020-10-19] MEDS ORDERED: ATROPINE SULF 1 MG/10 ML SYR IV ONE (08:35)
[2020-10-19] MEDS ORDERED: MIDAZOLAM HCL 2 MG/2 ML INJ ONE ×3 (08:50→08:54)
[2020-10-19 09:42] VITALS: TEMP 97.9
[2020-10-19 10:45] VITALS: BP 151/75; O2SAT 97
--- NOTE | 2020-10-19 12:17 | OP ---
Date of Procedure: 10/19/2020 Surgeon: Jan Colorado MD Procedure: Direct current cardioversion. Indication: Atrial fibrillation. Mr. Garcia is a 55-year-old white male with new onset atrial fibri llation, has been on sotalol and Xarelto for about 3 weeks. Remained in atrial fibrillation with sym ptoms, rapid ventricular response. Admitted to the hospital today as an outpatient to the cath lab tech. Procedure In Detail: He was given a total of 14 mg of Versed for IV sedation. He received 1 shock o f 100 joules and converted to sinus rhythm. There were no complications. The patient tolerated the procedure well. Total conscious sedation was 30 minutes. Final Diagnosis: Successful cardioversion from atrial fibrillation to sinus rhythm. He will continue sotalol. He will continue Xarelto. He will come to see me in the office in the nex t week or 2. He can go home after he wakes up. The case was discussed with his son. JENNIFER/AUGUSTUS Voice ID: [id number] Report ID: [id number]
== END 2020-10-19 10:21 | disposition home or self-care (01) ==
LOC: CCL 06:28
DX: I48.19 Other persistent atrial fibrillation (principal); Z20.828 Contact with and (suspected) exposure to other viral communicable diseases; I10 Essential (primary) hypertension; E78.2 Mixed hyperlipidemia; E11.9 Type 2 diabetes mellitus without complications; K21.9 Gastro-esophageal reflux disease without esophagitis; E66.9 Obesity, unspecified; Z68.37 Body mass index [BMI] 37.0-37.9, adult; Z79.84 Long term (current) use of oral hypoglycemic drugs; Z79.01 Long term (current) use of anticoagulants
CPT/HCPCS: 93005; 85025; 80048; 36415; 85610; 82947; 85730; 92960; U0002; J2250 ×4; J7040

== ENCOUNTER 2021-10-31 12:16 | Inpatient (IN) | payer OTHER ==
--- OUTSIDE RECORDS SUMMARY | 2021-10-31 12:19 | XMS REPORT | Continuity of Care Document ---
:1965 Author Organization [facility] t Address [address] [place] [address] Dr. Koroma [address] [place] [id number] Care Team Providers Name Role Phone Luz MURDOCK Attending Clinician Unavailable Luz Murdock MD Attending Clinician Milla GR Attending Clinician MILLA Attending Clinician Unavailable Room, Therapy Tub Attending Clinician Unavailable Comfort GR L Attending Clinician Jose David CAREY Attending Clinician Unavailable Jose David Carey MD Attending Clinician Payers Payer Name Policy Type Policy Number Effective Date Expiration Date [facility] [id number] 2019 PPO/POS 00:00:00 Problems Condition Condition Condition Status Onset Resolution Last Treating Co mments Source Name Details Category Date Date Treatment Clinician Date No known No known Disease Unive rs active active ity of problems problems [facility] Allergies, Adverse Reactions, Alerts Allergy Allergy Status Severity Reaction(s) Onset Inactive Treating Comm ents Source Name Type Date Date Clinician NO KNOWN Drug Active Univers ALLERGIE Class ity of S [facility] Social History Social Habit Start Date Stop Date Quantity Comments Source Sex Assigned At [facility] Branch Exposure to Not sure [facility] SARS-CoV-2 (event) Medica l Branch Alcohol intake 2020-04-04 2020-04-04 [facility] 00:00:00 00:00:00 [facility] Smoking Status Start Date Stop Date Source Never smoker [facility] Medications Ordered Filled Start Stop Current Ordering Indication Dosage Frequency Signature Comments Components Source Medication Medication Date Date Medication? Clinician (SIG) Name Name sulfamethox Yes [id number] 1{tbl} Take 1 Univers azole-trime 5-18 tablet by ity of thoprim 00:00: mouth 2 [place] (BACTRIM 00 (two) Medical DS) 800-160 times Branch mg per daily. tablet sulfamethox 2020-0 Yes [id number] 1{tbl} Take 1 Univers azole-trime 5-18 tablet by ity of thoprim 00:00: mouth 2 [place] (BACTRIM 00 (two) Medical DS) 800-160 times Branch mg per daily. tablet sulfamethox 2020-0 Yes [id number] 1{tbl} Take 1 Univers azole-trime 5-18 tablet by ity of thoprim 00:00: mouth 2 [place] (BACTRIM 00 (two) Medical DS) 800-160 times Branch mg per daily. tablet sulfamethox 2020-0 Yes [id number] 1{tbl} Take 1 Univers azole-trime 5-18 tablet by ity of thoprim 00:00: mouth 2 [place] (BACTRIM 00 (two) Medical DS) 800-160 times Branch mg per daily. tablet sulfamethox 2020-0 Yes [id number] 1{tbl} Take 1 Univers azole-trime 5-18 tablet by ity of thoprim 00:00: mouth 2 [place] (BACTRIM 00 (two) Medical DS) 800-160 times Branch mg per daily. tablet FENTanyl 2020-0 2020- No 400ug 400 mcg, Uni vers (ACTIQ) 5-12 05-12 Buccal, ity of lollipop 18:15: 16:45 ONCE, 1 [place] 400 mcg 00 :00 dose, [facility] 03/15/20 at Branch 1315, Routine amLODIPine 2020-0 Yes 5mg Take 5 mg Un catrachito 5 mg tablet 5-12 by mouth ity of 16:35: daily. [address] lisinopril 2020-0 Yes 10mg Take 10 mg U nivers 10 mg 5-12 by mouth ity of tablet 16:35: daily. [address] amLODIPine 2020-0 Yes 5mg Take 5 mg Un catrachito 5 mg tablet 5-12 by mouth ity of 16:35: daily. [address] lisinopril 2020-0 Yes 10mg Take 10 mg U nivers 10 mg 5-12 by mouth ity of tablet 16:35: daily. [address] amLODIPine 2020-0 Yes 5mg Take 5 mg Un catrachito 5 mg tablet 5-12 by mouth ity of 16:35: daily. [address] lisinopril 2020-0 Yes 10mg Take 10 mg U nivers 10 mg 5-12 by mouth ity of tablet 16:35: daily. [address] amLODIPine 2020-0 Yes 5mg Take 5 mg Un catrachito 5 mg tablet 5-12 by mouth ity of 16:35: daily. [address] lisinopril 2020-0 Yes 10mg Take 10 mg U nivers 10 mg 5-12 by mouth ity of tablet 16:35: daily. [address] amLODIPine 2020-0 Yes 5mg Take 5 mg Un catrachito 5 mg tablet 5-12 by mouth ity of 16:35: daily. [address] lisinopril 2020-0 Yes 10mg Take 10 mg U nivers 10 mg 5-12 by mouth ity of tablet 16:35: daily. [address] amLODIPine 2020-0 Yes 5mg Take 5 mg Un catrachito 5 mg tablet 5-12 by mouth ity of 16:35: daily. [address] lisinopril 2020-0 Yes 10mg Take 10 mg U nivers 10 mg 5-12 by mouth ity of tablet 16:35: daily. [address] amLODIPine 2020-0 Yes 5mg Take 5 mg Un catrachito 5 mg tablet 5-12 by mouth ity of 16:35: daily. [address] lisinopril 2020-0 Yes 10mg Take 10 mg U nivers 10 mg 5-12 by mouth ity of tablet 16:35: daily. [address] amLODIPine 2020-0 Yes 5mg Take 5 mg Un catrachito 5 mg tablet 5-12 by mouth ity of 16:35: daily. [address] lisinopril 2020-0 Yes 10mg Take 10 mg U nivers 10 mg 5-12 by mouth ity of tablet 16:35: daily. [address] amLODIPine 2020-0 Yes 5mg Take 5 mg Un catrachito 5 mg tablet 5-12 by mouth ity of 16:35: daily. [address] lisinopril 2020-0 Yes 10mg Take 10 mg U nivers 10 mg 5-12 by mouth ity of tablet 16:35: daily. [place] 38 [facility] Branch sulfamethox 2020-0 2020- No [id number] 1{tbl} Take 1 Univers azole-trime 5-12 05-20 tablet by it y of thoprim 00:00: 04:59 mouth 2 [place] (BACTRIM 00 :00 (two) Medical DS) 800-160 times Branch mg per daily for tablet 7 days. sulfamethox 2020-0 2020- No [id number] 1{tbl} Take 1 Univers azole-trime 5-12 05-20 tablet by it y of thoprim 00:00: 04:59 mouth 2 [place] (BACTRIM 00 :00 (two) Medical DS) 800-160 times Branch mg per daily for tablet 7 days. sulfamethox 2020-0 2020- No [id number] 1{tbl} Take 1 Univers azole-trime 5-12 05-20 tablet by it y of thoprim 00:00: 04:59 mouth 2 [place] (BACTRIM 00 :00 (two) Medical DS) 800-160 times Branch mg per daily for tablet 7 days. sulfamethox 2020-0 2020- No [id number] 1{tbl} Take 1 Univers azole-trime 5-12 05-20 tablet by it y of thoprim 00:00: 04:59 mouth 2 [place] (BACTRIM 00 :00 (two) Medical DS) 800-160 times Branch mg per daily for tablet 7 days. sulfamethox 2020-0 2020- No [id number] 1{tbl} Take 1 Univers azole-trime 5-12 05-20 tablet by it y of thoprim 00:00: 04:59 mouth 2 [place] (BACTRIM 00 :00 (two) Medical DS) 800-160 times Branch mg per daily for tablet 7 days. sulfamethox 2020-0 2020- No [id number] 1{tbl} Take 1 Univers azole-trime 5-12 05-20 tablet by it y of thoprim 00:00: 04:59 mouth 2 [place] (BACTRIM 00 :00 (two) Medical DS) 800-160 times Branch mg per daily for tablet 7 days. sulfamethox 2020-0 2020- No [id number] 1{tbl} Take 1 Univers azole-trime 5-12 05-20 tablet by it y of thoprim 00:00: 04:59 mouth 2 [place] (BACTRIM 00 :00 (two) Medical DS) 800-160 times Branch mg per daily for tablet 7 days. cephALEXin 2020-0 Yes Univers 250 mg 5-11 ity of capsule 00:00: [place] [facility] Branch cephALEXin 2020-0 Yes Univers 250 mg 5-11 ity of capsule 00:00: [place] [address] Medical Branch cephALEXin 2020-0 Yes Univers 250 mg 5-11 ity of capsule 00:00: [address] Branch cephALEXin 2020-0 Yes Univers 250 mg 5-11 ity of capsule 00:00: [address] Branch cephALEXin 2020-0 Yes Univers 250 mg 5-11 ity of capsule 00:00: [address] Branch cephALEXin 2020-0 Yes Univers 250 mg 5-11 ity of capsule 00:00: [address] cephALEXin 2019-0 Yes Univers 250 mg 5-11 ity of capsule 00:00: [address] Branch cephALEXin 2020-0 Yes Univers 250 mg 5-11 ity of capsule 00:00: [address] cephALEXin 2020-0 Yes Univers 250 mg 5-11 ity of capsule 00:00: [address] omeprazole 2020-0 Yes TK 1 C PO Un catrachito 40 mg 4-24 QD 30 MIN ity of capsule 00:00: [address] metFORMIN 2020-0 Yes TK 1 T PO Uni vers 1,000 mg 4-24 BID WAC ity of tablet 00:00: [address] omeprazole 2020-0 Yes TK 1 C PO Un catrachito 40 mg 4-24 QD 30 MIN ity of capsule 00:00: [address] metFORMIN 2020-0 Yes TK 1 T PO Uni vers 1,000 mg 4-24 BID WAC ity of tablet 00:00: [address] omeprazole 2020-0 Yes TK 1 C PO Un catrachito 40 mg 4-24 QD 30 MIN ity of capsule 00:00: [address] metFORMIN 2020-0 Yes TK 1 T PO Uni vers 1,000 mg 4-24 BID WAC ity of tablet 00:00: [address] omeprazole 2020-0 Yes TK 1 C PO Un catrachito 40 mg 4-24 QD 30 MIN ity of capsule 00:00: B DAWIT [place] 00 Medical Branch metFORMIN 2020-0 Yes TK 1 T PO Uni vers 1,000 mg 4-24 BID WAC ity of tablet 00:00: [place] [facility] omeprazole 2020-0 Yes TK 1 C PO Un catrachito 40 mg 4-24 QD 30 MIN ity of capsule 00:00: B [facility] Medical Branch metFORMIN 2020-0 Yes TK 1 T PO Uni vers 1,000 mg 4-24 BID WAC ity of tablet 00:00: [place] [facility] omeprazole 2020-0 Yes TK 1 C PO Un catrachito 40 mg 4-24 QD 30 MIN ity of capsule 00:00: B [facility] Medical Branch metFORMIN 2020-0 Yes TK 1 T PO Uni vers 1,000 mg 4-24 BID WAC ity of tablet 00:00: [place] [facility] [place] omeprazole 2020-0 Yes TK 1 C PO Un catrachito 40 mg 4-24 QD 30 MIN ity of capsule 00:00: B [facility] Medical Branch metFORMIN 2020-0 Yes TK 1 T PO Uni vers 1,000 mg 4-24 BID WAC ity of tablet 00:00: [place] [facility] omeprazole 2020-0 Yes TK 1 C PO Un catrachito 40 mg 4-24 QD 30 MIN ity of capsule 00:00: B [facility] Medical Branch metFORMIN 2020-0 Yes TK 1 T PO Uni vers 1,000 mg 4-24 BID WAC ity of tablet 00:00: [address] metFORMIN 2020-0 Yes TK 1 T PO Uni vers 1,000 mg 4-24 BID WAC ity of tablet 00:00: [address] omeprazole 2020-0 Yes TK 1 C PO Un catrachito 40 mg 4-24 QD 30 MIN ity of capsule 00:00: B [facility] Vital Signs Vital Name Observation Time Observation Value Comments Source Systolic blood 2020-04-04 17:53:00 166 mm[Hg] Univer sity of pressure [facility] Diastolic blood 2020-04-04 17:53:00 85 mm[Hg] Unive rsity of [facility] Heart rate 2020-04-04 17:53:00 92 /min [facility] Body temperature 2020-04-04 17:53:00 36.06 [facility] Respiratory rate 2020-04-04 17:53:00 14 /min Univ ersity of [place] [facility] Body weight 2020-04-04 17:53:00 102.967 kg Universi ty of [place] [facility] Oxygen saturation in 2020-04-04 17:53:00 96 /min University of Arterial blood by [facility] Pulse oximetry Branch Systolic blood 2020-04-04 17:53:00 166 mm[Hg] Univer sity of pressure [place] [facility] Diastolic blood 2020-04-04 17:53:00 85 mm[Hg] Unive rsity of pressure [place] [facility] Heart rate 2020-04-04 17:53:00 92 /min [facility]i ty [facility] [place] [facility] Body temperature 2020-04-04 17:53:00 36.06 Zakia Univ ersity of [place] [facility] Respiratory rate 2020-04-04 17:53:00 14 /min Univ ersity of [place] [facility] Body weight 2020-04-04 17:53:00 102.967 kg Universi ty of [place] [facility] Oxygen saturation in 2020-04-04 17:53:00 96 /min University of Arterial blood by [facility] Pulse oximetry Branch Systolic blood 2020-03-22 14:17:00 178 mm[Hg] Univer sity of pressure [place] [facility] Diastolic blood 2020-03-22 14:17:00 99 mm[Hg] Unive rsity of pressure [place] [facility] Body weight 2020-03-22 14:17:00 105.416 kg [facility]i ty [facility] [place] [facility] Heart rate 2020-03-21 18:54:00 101 /min Universi ty of [place] [facility] Systolic blood 2020-03-15 16:31:00 166 mm[Hg] Univer sity of pressure [place] [facility] Diastolic blood 2020-03-15 16:31:00 87 mm[Hg] Unive rsity of pressure [place] [facility] Heart rate 2020-03-15 16:31:00 87 /min [facility] ty [facility] [place] [facility] Body temperature 2020-03-15 16:31:00 36.56 Zakia Univ ersity of [place] [facility] Respiratory rate 2020-03-15 16:31:00 14 /min Univ ersity of [place] [facility] Body weight 2020-03-15 16:31:00 95.255 kg Universi ty [facility] [place] [facility] Oxygen saturation in 2020-03-15 16:31:00 98 /min University of Arterial blood by [facility] Pulse oximetry Branch Procedures Procedure Date / Time Performing Clinician Source Performed NO SHOW OR MISSED 2020-04-04 19:05:01 Doctor Unasssrikanth, [facility] APPOINTMENT POLICY [facility] ACKNOWLEDGEMENT NOTICE OF PRIVACY 2020-04-04 19:01:04 Doctor Unasssrikanth, [facility] PRACTICES [facility] CONSENT/REFUSAL FOR 2020-04-04 19:00:48 Doctor Marta [facility] DIAGNOSIS AND TREATMENT [facility] ASSIGNMENT OF BENEFITS 2020-04-04 19:00:31 Doctor Unassigned, [facility] REFERRAL OCCUPATIONAL 2020-04-04 00:00:00 Toney Abdalla [facility] REFERRAL OCCUPATIONAL 2020-03-21 00:00:00 Alex Clemens [facility] REFERRAL OCCUPATIONAL 2020-03-15 00:00:00 Pradeep Leal [facility] Encounters Start End Encounter Admission Attending Care Care Encounter Source Date/Time Date/Time Type Type Clinicians Facility Department ID 2020-04-21 2020-04-21 Outpatient R [facility] [id number] Univers 12:30:00 12:30:00 [id number] ity [facility] 2020-04-21 2020-04-21 Outpatient R ILIR MURDOCK [facility] [id number] Univers 12:30:00 12:30:00 ity [facility] 2020-04-06 2020-04-06 Telephone Ilir Murdock [id number] 00:00:00 00:00:00 Vinay [id number] [facility] [id number] [facility] 2020-04-06 2020-04-06 Telephone Ilir Murdock [id number] [facility] 00:00:00 00:00:00 Vinay [id number] it y [facility] [id number] Osmin as [id number] [address] 2020-04-04 2020-04-04 [facility] Hermila Tapia [id number] 12:30:00 23:59:00 Encounter Ganesh Vinay [id number] [place] [id number] 2020-04-04 2020-04-04 Hospital Ganesh Tapia [id number] Univers 12:30:00 23:59:00 Encounter Ilir Murdock Vinay [id number] ity [facility] [id number] Osmin as [id number] [address] 2020-04-04 2020-04-04 Outpatient R [facility] [id number] Univers 12:30:00 12:30:00 ity [facility] 2020-04-04 2020-04-04 [facility] [id number] Univers 12:30:00 12:30:00 GANESH michael [facility] 2020-04-04 2020-04-04 Outpatient R ILIR MURDOCK [facility] [id number] Univers 11:15:00 11:15:00 ity [facility] 2020-03-21 2020-03-30 Ancillary Room, Hermila [id number] 14:30:00 07:35:19 Visit Lani-Occup Vinay [id number] Therapy Tub [place] [id number] 2020-03-21 2020-03-30 Ancillary Room, Lani-Occup Therapy Tub [place] [id number] Univers 14:30:00 07:35:19 Visit Babatunde Moyer [id number] [place] [id number] Osmin as [id number] [address] 2020-03-29 2020-03-29 Outpatient R [facility] [id number] Univers 12:30:00 12:30:00 [id number] ity [facility] 2020-03-29 2020-03-29 [facility] [id number] Univers 12:30:00 12:30:00 JARON sutherland [facility] 2020-03-21 2020-03-21 [facility] Hermila Carey [id number] Univers 12:30:00 23:59:00 Encounter Jaron Mclean [id number] ity of Hospital [id number] [place] [id number] [address] 2020-03-21 2020-03-21 Outpatient R [facility] [id number] Univers 12:30:00 12:30:00 [id number] ity [facility] 2020-03-21 2020-03-21 Outpatient R AURELIO [facility] [id number] Univers 12:30:00 12:30:00 JARON thomasy [facility] 2020-03-18 2020-03-18 Outpatient R [facility] [id number] Univers 12:30:00 12:30:00 [id number] ity [facility] 2020-03-18 2020-03-18 Outpatient R MILLA [facility] [id number] Univers 12:30:00 12:30:00 GANESH sutherland [facility] 2020-03-17 2020-03-17 Telephone Hermila Tapia [id number] Univers 00:00:00 00:00:00 Ganesh Mclean [id number] it y of Hospital [id number] [place] [id number] [address] 2020-03-15 2020-03-15 [facility] Hermila Tapia [id number] Univers 11:27:00 23:59:00 Encounter Ganesh Mclean [id number] ity of Hospital [id number] [place] as [id number] [facility] [address] [place] 2020-03-15 2020-03-15 Ancillary Room, Lani-Occup Therapy [facility] [id number] Univers 16:34:10 17:34:10 Visit Ganesh Tapia [id number] ity of [facility] [id number] Osmin as [id number] [facility] [address] [place] 2020-03-15 2020-03-15 Outpatient R MILLA [facility] [id number] Univers 14:00:00 14:00:00 GANESH sutherland [facility] 2020-03-15 2020-03-15 Outpatient R [facility] [id number] Univers 12:30:00 12:30:00 [id number] koko of [facility] 2020-03-15 2020-03-15 Outpatient Amanda TAPIA [facility] [id number] Univers 11:27:25 11:27:25 GANESH sutherland [facility] Results Test Description Test Time Test Comments Results Result Sourc e Comments REFERRAL 2020-04-04 Consult [employer] 00:00:00 received and [place] [facility] THERAPY chart reviewed Branch via EPIC. ?Please refer to progress note for details. Jelani [phone] pgr. REFERRAL 2020-03-21 Consult [facility] [employer] 00:00:00 received and [place] [facility] THERAPY EPIC reviewed. Branch ?Please refer to progress note for details. Jelani [phone] pgr. REFERRAL 2020-03-15 Consult [employer] 00:00:00 received and [place] Medi sommer THERAPY chart reviewed Branch via EPIC. ?Please refer to progress note for details. Jelani [phone] pgr.
[2021-10-31 14:59] LABS: Absolute Lymphocytes (CBC) 1.2 K/uL (0.7-4.9); Hematocrit 36.5 % (39.6-49.0); MPV 7.9 fL (7.6-11.3); Protime INR 1.26; RBC Red Blood Cell Count 4.51 M/uL (4.33-5.43)
[2021-10-31 15:29] LABS: ALT/SGPT 32 U/L (12-78); AST/SGOT 46 U/L (15-37); Albumin 3.5 g/dL (3.4-5.0); Alkaline Phosphatase 123 U/L (45-117); BUN Blood Urea Nitrogen 9 mg/dL (7-18); Bicarbonate 29 mmol/L (21-32); Bilirubin Direct 0.8 mg/dL (0-0.2); Bilirubin Total 1.4 mg/dL (0.2-1.0); Glucose Level 109 mg/dL (74-106); NT PRO-BNP 194 pg/mL (<125); Potassium 3.5 mmol/L (3.5-5.1); Protein, Total 7.3 g/dL (6.4-8.2); Sodium Level 135 mmol/L (136-145); Troponin (Emerg Dept Use Only) < 0.02 ng/mL (0.0-0.045)
[2021-10-31 15:36] LABS: Magnesium 1.2 mg/dL (1.8-2.4)
[2021-10-31 15:54] LABS: Blood Morphology Comment NOT SEEN (NOT SEEN); Platelet Estimate ADEQ
--- NOTE | 2021-10-31 16:12 | ER ---
Nurse's Notes [facility] Name: Mohamud Garcia Age: 56 yrs Sex: Male : 1965 Arrival Date: 10/31/2021 Time: 12:16 Bed 19 Private MD: Diagnosis: Unspecified atrial fibrillation-new onset;Acute pulmonary edema Presentation: 10/31 13:19 Chief complaint: Patient states: Dr. Begum sent him over; extensive swelling to [facility] bilateral lower legs, and fluid on the lungs. Coronavirus screen: Vaccine status: Patient reports receiving the 2nd dose of the covid vaccine. Client denies travel out of the [place] in the last 14 days. At this time, the client does not indicate any symptoms associated with coronavirus-19. Ebola Screen: Patient negative for fever greater than or equal to 101.5 degrees Fahrenheit, and additional compatible Ebola Virus Disease symptoms Patient denies exposure to infectious person. Patient denies travel to an Ebola-affected area in the 21 days before illness onset. Initial Sepsis Screen: Does the patient meet any 2 criteria? No. Patient's initial sepsis screen is negative. Does the patient have a suspected source of infection? No. Patient's initial sepsis screen is negative. Risk Assessment: Do you want to hurt yourself or someone else? Patient reports no desire to harm self or others. 13:19 Method Of Arrival: Ambulatory [facility] 13:19 Acuity: SUZI [address] [facility] 19:05 Onset of symptoms was October 28, 2021. ae4 Triage Assessment: 13:22 General: Appears in no apparent distress. Behavior is calm, cooperative, appropriate [facility] for age. Pain: Denies pain. Historical: - PMHx: 13:22 Diabetes - NIDDM; Gastric Reflux; Hypertension; [facility] - Immunization history:: Adult Immunizations up to date. - Social history:: Smoking status: Patient denies any tobacco usage or history of. Screenin:04 Abuse screen: Denies threats or abuse. Nutritional screening: No deficits noted. ae4 Tuberculosis screening: No symptoms or risk factors identified. Fall Risk None identified. Assessment: 18:25 General: Appears in no apparent distress. comfortable, obese, Behavior is calm, ae4 cooperative. Pain: Denies pain. Neuro: Level of Consciousness is awake, alert, obeys commands, Oriented to person, place, time, situation, Appropriate for age. 19:06 Reassessment: Report and hand off care to NATALYA Robbins. ae4 22:52 Reassessment: Report called to Inez HOANG. The patient is going into room 205. . sv1 Vital Signs: 13:19 BP 136 / 89; Pulse 120; Resp 22; Temp 98.1; Pulse Ox 95% ; Weight 115.21 kg; Height 5 [facility] ft. 8 in. (172.72 cm); 18:01 BP 164 / 94; Pulse 115; Resp 20; Pulse Ox 96% on R/A; tm3 19:07 BP 155 / 75; Pulse 133; Resp 18; Pulse Ox 96% on R/A; ae4 21:25 BP 141 / 83; Pulse 123; Resp 24; Temp 97.8; Pulse Ox 95% ; Pain 0/10; sv1 22:54 BP 133 / 70; Pulse 118; Resp 22; Pulse Ox 95% 0 lpm ; Pain 0/10; sv1 13:19 Body Mass Index 38.62 (115.21 kg, 172.72 cm) 5 ED Course: 12:16 Patient arrived in ED. ds1 13:22 Triage completed. [facility] 13:31 Janelle [facility]aredes [facility]-C [facility] kb 13:31 Rupesh Yi MD is Attending Physician. kb 15:32 Notified Nurse Practitioner and/or Physician Assistant Bookkeeper of a critical lab result(s), Mag ll1 1.2. 16:11 Radha Harris MD is Hospitalizing Provider. kb 16:35 Carmelo Enriquez RN is Primary Nurse. ll1 19:03 Inserted saline lock: 20 gauge in right antecubital area, using aseptic technique. ae4 ,using aseptic technique. By ER Seed Service Advisor Blood collected. 19:04 Arm band placed on right wrist. EKG completed in triage. Results shown to . ae4 19:04 Bed in low position. Call light in reach. Side rails up X 1. ekg monitor on. Pulse ae4 ox on. NIBP on. 19:34 Comprehensive Metabolic Panel Sent. ae4 19:35 Comprehensive Metabolic Panel Sent. ae4 21:24 Echo with Doppler Sent. sv1 21:59 No provider procedures requiring assistance completed. IV is patent, is intact. sv1 22:58 Patient admitted, IV remains in place. intact. sv1 Administered Medications: 17:00 Drug: Lasix (furosemide) 40 mg Route: IVP; Site: right antecubital; ae4 19:02 Follow up: Urine output 800 ml ae4 17:12 Drug: Magnesium Sulfate 2 grams Route: IVPB; Infused Over: 1 hrs; Site: right ae4 antecubital; 19:03 Follow up: IV Status: Completed infusion ae4 Output: 19:02 Urine: 800ml; Total: 800ml. ae4 Outcome: 16:11 Decision to Hospitalize by Provider. kb 21:59 Admitted to Med/surg accompanied by tech, via wheelchair. sv1 22:00 Condition: improved sv1 22:00 Instructed on the need for admit. 11/01 00:00 Patient left the ED. sv1 Signatures: Janelle Paredes, COMB SETTER-C COMB SETTER-Ckb Hung Ritchie tm3 Deandra Combs ds1 Alfonso Rios RN RN ae4 Carmelo Enriquez RN RN ll1 Heather Dunlap RN RN jh5 Ganesh Rao RN RN sv1
--- NOTE | 2021-10-31 16:12 | EDPHYS ---
Physician Documentation [facility] Name: Mohamud Garcia Age: 56 yrs Sex: Male : 1965 Arrival Date: 10/31/2021 Time: 12:16 Bed 19 Private MD: ED Physician Rupesh Yi HPI: 10/31 16:18 This 56 yrs old Male presents to ER via Ambulatory with complaints of Fluid On Lungs- kb Sent Per Dr. Begum. 16:18 The patient has not experienced similar symptoms in the past. The patient has been kb recently seen by a physician:. Pt states he went to Dr Begum for swelling to bilateral lower extremities and intermittent cough. Was sent for CXR and then called and told to come to the ER for fluid on the lungs. 16:20 The patient presents with swelling. The complaints affect the right leg and left leg. kb Context: The problem was sustained at home, resulted from an unknown cause, the patient can fully bear weight, the patient is able to ambulate, Problem is a result from a previous injury: No. Onset: The symptoms/episode began/occurred 1 month(s) ago. Modifying factors: The symptoms are alleviated by nothing. the symptoms are aggravated by nothing. Associated signs and symptoms: Pertinent positives: swelling, Pertinent negatives calf tenderness, fever, nausea, numbness, rash, tingling, vomiting, warmth, weakness. Treatment prior to arrival includes: no previous treatment. Severity of symptoms: At their worst the symptoms were moderate, in the emergency department the symptoms are unchanged. Historical: - PMHx: 13:22 Diabetes - NIDDM; Gastric Reflux; Hypertension; jh5 - Immunization history:: Adult Immunizations up to date. - Social history:: Smoking status: Patient denies any tobacco usage or history of. ROS: 16:17 Constitutional: Negative for fever, chills, and weight loss. kb 16:17 Cardiovascular: Positive for edema. 16:17 Respiratory: Positive for cough, dyspnea on exertion. 16:17 All other systems are negative. Exam: 16:17 Constitutional: This is a well developed, well nourished patient who is awake, alert, kb and in no acute distress. Head/Face: Normocephalic, atraumatic. ENT: Moist Mucous membranes Abdomen/GI: Soft, non-tender. No distention Skin: Warm, dry with normal turgor. Normal color. MS/ Extremity: Pulses equal, no cyanosis. Neurovascular intact. Full, normal range of motion. Neuro: Awake and alert, GCS 15, oriented to person, place, time, and situation. Moves all extremities. Normal gait. Psych: Awake, alert, with orientation to person, place and time. Behavior, mood, and affect are within normal limits. 16:17 Cardiovascular: Rate: tachycardic, Rhythm: irregularly irregular, Pulses: no pulse deficits are appreciated, Edema: 3+ edema to level of left ankle and right ankle. Vital Signs: 13:19 BP 136 / 89; Pulse 120; Resp 22; Temp 98.1; Pulse Ox 95% ; Weight 115.21 kg; Height 5 jh5 ft. 8 in. (172.72 cm); 18:01 BP 164 / 94; Pulse 115; Resp 20; Pulse Ox 96% on R/A; tm3 19:07 BP 155 / 75; Pulse 133; Resp 18; Pulse Ox 96% on R/A; ae4 21:25 BP 141 / 83; Pulse 123; Resp 24; Temp 97.8; Pulse Ox 95% ; Pain 0/10; sv1 22:54 BP 133 / 70; Pulse 118; Resp 22; Pulse Ox 95% 0 lpm ; Pain 0/10; sv1 13:19 Body Mass Index 38.62 (115.21 kg, 172.72 cm) 5 MDM: 13:31 Patient medically screened. kb 16:16 Data reviewed: vital signs, nurses notes. Data interpreted: Pulse oximetry: on room air kb is 95 %. Interpretation: normal. Counseling: I had a detailed discussion with the patient and/or guardian regarding: the historical points, exam findings, and any diagnostic results supporting the discharge/admit diagnosis, lab results, radiology results, the need for further work-up and treatment in the hospital. Physician consultation: Radha Harris MD regarding admission, to the telemetry unit. patient's condition, and will see patient in ED. 10/31 13:31 Order name: Basic Metabolic Panel; Complete Time: 15:40 kb 10/31 13:31 Order name: CBC with Diff; Complete Time: 15:57 kb 10/31 13:31 Order name: LFT's; Complete Time: 15:40 kb 10/31 13:31 Order name: Magnesium; Complete Time: 15:40 kb 10/31 13:31 Order name: NT PRO-BNP; Complete Time: 15:40 kb 10/31 13:31 Order name: PT-INR; Complete Time: 15:06 kb 10/31 13:31 Order name: Troponin (emerg Dept Use Only); Complete Time: 15:40 kb 10/31 13:31 Order name: COVID-19 SARS RT PCR (Document "Date of Onset" if Symptomatic); Complete kb Time: 15:46 10/31 15:54 Order name: Manual Differential; Complete Time: 15:57 EDMS 10/31 17:07 Order name: Comprehensive Metabolic Panel EDMS 10/31 17:07 Order name: Comprehensive Metabolic Panel EDMS 10/31 17:07 Order name: Echo with Doppler EDMS 10/31 23:55 Order name: Glucose, Ancillary Testing EDMS 10/31 13:31 Order name: EKG; Complete Time: 13:32 kb 10/31 13:31 Order name: Cardiac monitoring; Complete Time: 13:34 kb 10/31 13:31 Order name: EKG - Nurse/Tech; Complete Time: 13:33 kb 10/31 13:31 Order name: IV Saline Lock; Complete Time: 13:33 kb 10/31 13:31 Order name: Labs collected and sent; Complete Time: 13:33 kb 10/31 13:31 Order name: O2 Per Protocol; Complete Time: 13:34 kb 10/31 13:31 Order name: O2 Sat Monitoring; Complete Time: 13:34 kb 10/31 17:07 Order name: CONS Physician Consult EDND 10/31 17:07 Order name: Heart Healthy; Complete Time: 21:24 EDMS Administered Medications: 17:00 Drug: Lasix (furosemide) 40 mg Route: IVP; Site: right antecubital; ae4 19:02 Follow up: Urine output 800 ml ae4 17:12 Drug: Magnesium Sulfate 2 grams Route: IVPB; Infused Over: 1 hrs; Site: right ae4 antecubital; 19:03 Follow up: IV Status: Completed infusion ae4 Disposition: 11/01 07:28 Co-signature as Attending Physician, Rupesh Yi MD I agree with the assessment and kdr plan of care. Disposition Summary: 10/31/21 16:11 Hospitalization Ordered Hospitalization Status: Inpatient Admission kb Provider: Radha Harris Location: Telemetry/MedSurg (Inpatient) kb Condition: Stable kb Problem: new kb Symptoms: are unchanged kb Bed/Room Type: Standard kb Room Assignment: 205(10/31/21 20:05) cs9 Diagnosis - Unspecified atrial fibrillation - new onset kb - Acute pulmonary edema kb Discharge Instructions: - Discharge Summary Sheet cs9 - Chemical Cardioversion cs9 Forms: - Medication Reconciliation Form kb - SBAR form kb Signatures: Dispatcher [employer] EDMS Janelle Paredes, TRANSFER ENGINEER-C TRANSFER ENGINEER-Rupesh Teresa MD MD kdr Alfonso Rios RN RN ae4 Sonal Yeh cs9 Heather Dunlap RN RN jh5 Corrections: (The following items were deleted from the chart) 10/31 13:48 13:32 Chest Single View+[id number].[email or web address] ordered. EDMS EDMS 20:05 16:11 kb cs9
[2021-10-31] MEDS ORDERED: ONDANSETRON 4 MG/2 ML VIAL IV PRN (17:03)
[2021-10-31] MEDS ORDERED: ACETAMINOPHEN 500 MG TAB PO PRN (17:03)
[2021-10-31] MEDS ORDERED: Magnesium Sulfate 2gm IVPB 2 G/50 ML BAG IV ONE (17:03)
[2021-10-31] MEDS ORDERED: FUROSEMIDE 40 MG/4 ML VIAL ONE (17:03)
[2021-10-31] MEDS: METHYLPREDNISOLONE 125 MG INJ IV SCH (18:00)
[2021-10-31] MEDS: NACHLORIDE 0.45% 1,000 ML IV SCH (18:00)
[2021-10-31] MEDS ORDERED: LEVALBUTEROL 1.25 MG/3 ML NEB ONE (19:19)
[2021-10-31] MEDS ORDERED: IPRATROPIUM BROM 0.5MG/2.5ML ONE (19:19)
[2021-10-31] MEDS: LEVALBUTEROL 1.25 MG/3 ML NEB NEB SCH (19:20)
[2021-10-31] MEDS: IPRATROPIUM BROM 0.5MG/2.5ML NEB SCH (19:20)
[2021-10-31] MEDS ORDERED: METOPROLOL TAR 50 MG TAB PO SCH (21:00)
[2021-11-01] MEDS: METHYLPREDNISOLONE 125 MG INJ IV SCH ×5 (00:25→17:00)
[2021-11-01] MEDS: POTASSIUM 25 MEQ EFFERV TAB PO SCH ×3 (00:26→20:48)
[2021-11-01] MEDS: NACHLORIDE 0.45% 1,000 ML IV SCH ×2 (00:53→14:00)
[2021-11-01] MEDS: LEVALBUTEROL 1.25 MG/3 ML NEB NEB SCH ×4 (02:00→20:00)
[2021-11-01] MEDS: IPRATROPIUM BROM 0.5MG/2.5ML NEB SCH ×4 (02:00→20:00)
[2021-11-01 04:32] LABS: Absolute Lymphocytes (CBC) 0.6 K/uL (0.7-4.9); Hematocrit 40.7 % (39.6-49.0); Lymphocytes % 13.4 % (15.3-44.8); RBC Red Blood Cell Count 4.97 M/uL (4.33-5.43)
[2021-11-01 04:53] LABS: ALT/SGPT 35 U/L (12-78); AST/SGOT 45 U/L (15-37); Albumin 3.6 g/dL (3.4-5.0); Alkaline Phosphatase 135 U/L (45-117); BUN Blood Urea Nitrogen 7 mg/dL (7-18); Bicarbonate 29 mmol/L (21-32); Bilirubin Total 1.2 mg/dL (0.2-1.0); Glucose Level 179 mg/dL (74-106); Magnesium 1.6 mg/dL (1.8-2.4); NT PRO-BNP 165 pg/mL (<125); Phosphorus 2.8 mg/dL (2.5-4.9); Potassium 3.5 mmol/L (3.5-5.1); Protein, Total 7.8 g/dL (6.4-8.2); Sodium Level 133 mmol/L (136-145); Troponin I < 0.02 ng/mL (0.0-0.045)
[2021-11-01] MEDS ORDERED: INFLUENZA VACCINE (for 6+ mo) 0.5 ML DOSE IMVAC ONE (08:00)
[2021-11-01] MEDS ORDERED: PNEUMOCOCCAL VACCINE 0.5 ML IMVAC ONE (08:00)
[2021-11-01] MEDS: VALSARTAN 80 MG TAB PO SCH (09:00)
[2021-11-01] MEDS ORDERED: HOME MED 1 EA UNK (Omeprazole [Prilosec] 40 MG Capsule.Dr) PO SCH (09:00)
[2021-11-01] MEDS ORDERED: ENOXAPARIN 40 MG/0.4 ML SQ SCH (09:00)
[2021-11-01] MEDS ORDERED: HOME MED 1 EA UNK (Metformin Hcl [Metformin Hcl] 1,000 MG Tablet) PO SCH (09:00)
[2021-11-01] MEDS: FUROSEMIDE 40 MG/4 ML VIAL IV SCH ×2 (09:27→16:19)
[2021-11-01] MEDS: ASPIRIN EC 81 MG TAB PO SCH (09:27)
[2021-11-01] MEDS: CLOPIDOGREL 75 MG TABLET PO SCH (09:28)
[2021-11-01] MEDS: PANTOPRAZOLE 40MG TABLET PO SCH (09:34)
[2021-11-01] MEDS: SOTALOL HCL 80 MG TAB PO SCH ×2 (09:34→20:41)
[2021-11-01] MEDS: lisinopriL 10 MG TAB PO SCH (09:34)
[2021-11-01] MEDS: RIVAROXABAN 20 MG TABLET PO SCH (09:34)
--- NOTE | 2021-11-01 16:05 | P.HP ---
Certification for Inpatient Patient admitted to: Inpatient With expected LOS: >2 Midnights Patient will require the following post-hospital care: None Practitioner: I am a practitioner with admitting privileges, knowledge of patient current condition, hospital course, and medical plan of care. Services: Services provided to patient in accordance with Admission requirements found in Title 42 Section 412.3 of the Code of Federal Regulations Patient History Date of Service: 10/31/21 Reason for admission: Atrial fibrillation with rapid ventricular response/CHF exacerbation History of Present Illness: Patient is a 56 year old gentleman who came to the hospital with palpitations and dyspnea. Patient was found to have atrial fibrillation with rapid ve ntricular response. Patient also was short of breath. Patient appeared to have acute CHF exacerbation. Patient was started on diuretics and medication for rate control. Echocardiogram is pending. Patient will be admitted for further evaluation. Allergies No Known Allergies Allergy (Verified 10/14/20 14:35) Home Medications: Lisinopril [Zestril] 10 mg PO DAILY 09/15/20 Metformin HCl 1,000 mg PO BID 09/15/20 Omeprazole [Prilosec] 40 mg PO DAILY 09/15/20 Rivaroxaban [Xarelto] 20 mg PO DAILY 30 Days #30 tablet 09/15/20 Sotalol HCl [Betapace*] 80 mg PO BID 30 Days #60 tab 09/15/20 - Past Medical/Surgical History Has patient received pneumonia vaccine in the past: No Diabetic: Yes -: Hypertension -: Diabetes mellitus type 2, [id number] -: GERD -: afib -: cirrhosis of the liver Past Surgical History: Patient denies surgical history - Family History Mother History Unknown: Yes Medical History: Hypertension - Social History Smoking Status: Never smoker Alcohol use: No CD- Drugs: No Caffeine use: Yes Place of Residence: Home Review of Systems 10-point ROS is otherwise unremarkable Physical Examination - Vital Signs Temperature: 97.9 F Blood Pressure: 160/87 Pulse: 102 Respirations: 16 Pulse Ox (%): 95 - Physical Exam General: Alert, In no apparent distress, Oriented x3 HEENT: Atraumatic, PERRLA, Mucous membr. moist/pink, EOMI, Sclerae nonicteric Neck: Supple, 2+ carotid pulse no bruit, No LAD, Without JVD or thyroid abnormality Respiratory: Diminished, Crackles/rales Cardiovascular: Irregular heart rate/rhythm, Systolic murmur Gastrointestinal: Normal bowel sounds, Soft and benign, Non-distended, No tenderness Musculoskeletal: No clubbing, No swelling, No tenderness Integumentary: No rashes Neurological: Normal gait, Normal speech, Normal strength at 5/5 x4 extr, Normal tone, Sensation intact, Cranial nerves 3-12 intact, Normal affect Lymphatics: No axilla or inguinal lymphadenopathy Assessment & Plan - Problems (Diagnosis) (1) Atrial fibrillation with rapid ventricular response Current Visit: Yes Status: Acute (2) Diastolic CHF, acute Current Visit: Yes Status: Acute (3) History of alcohol abuse Current Visit: Yes Status: Acute (4) History of cirrhosis Current Visit: Yes Status: Acute - Plan Plan: 1. Resume sotalol 2. Anticoagulation 3. Continue with diuretics 4. Echocardiogram 5. Repeat chest x-ray 6. GI and DVT prophylaxis Discharge Plan: Home Plan to discharge in: Greater than 2 days - Advance Directives Does patient have a Living Will: No Does patient have a Durable POA for Healthcare: No - Code Status/Comfort Care Code Status Assessed: Yes Code Status: Full Code Critical Care: No Time Spent Managing PTS Care (In Minutes): 45
[2021-11-01] MEDS ORDERED: METOPROLOL TARTRATE 5 MG/5 ML INJ IV PRN (16:06)
--- NOTE | 2021-11-01 16:06 | P.PN ---
Subjective Date of Service: 11/01/21 Patient still tachycardic. Respiratory status has improved. Echocardiogram is pending. Review of Systems 10-point ROS is otherwise unremarkable Physical Examination - Vital Signs Temperature: 97.9 F Blood Pressure: 160/87 Pulse: 102 Respirations: 16 Pulse Ox (%): 95 - Physical Exam General: Alert, In no apparent distress, Oriented x3 HEENT: Atraumatic, PERRLA, EOMI Neck: Supple, JVD not distended Respiratory: Clear to auscultation bilaterally, Normal air movement Cardiovascular: Normal S1 S2, No murmurs, Irregular heart rate/rhythm Gastrointestinal: Normal bowel sounds, Soft and benign, Non-distended, No tenderness Musculoskeletal: No clubbing, No swelling, No tenderness Neurological: Sensation intact, Cranial nerves 3-12 intact - Studies Medications List Reviewed: Yes Assessment & Plan - Problems (Diagnosis) (1) Atrial fibrillation with rapid ventricular response Current Visit: Yes Status: Acute (2) Diastolic CHF, acute Current Visit: Yes Status: Acute (3) History of alcohol abuse Current Visit: Yes Status: Acute (4) History of cirrhosis Current Visit: Yes Status: Acute - Plan Plan: 1. Resume sotalol 2. Anticoagulation 3. Continue with diuretics 4. Echocardiogram 5. Repeat chest x-ray 6. GI and DVT prophylaxis - Advance Directives Does patient have a Living Will: No Does patient have a Durable POA for Healthcare: No - Code Status/Comfort Care Code Status: Full Code
[2021-11-01] MEDS: METFORMIN HCL 500 MG TAB PO SCH (16:19)
[2021-11-01] MEDS ORDERED: Magnesium Sulfate 2gm IVPB 2 G/50 ML BAG IV ONE (17:00)
[2021-11-02] MEDS: METHYLPREDNISOLONE 125 MG INJ IV SCH ×4 (00:49→17:26)
[2021-11-02] MEDS: IPRATROPIUM BROM 0.5MG/2.5ML NEB SCH ×3 (02:00→14:00)
[2021-11-02] MEDS: LEVALBUTEROL 1.25 MG/3 ML NEB NEB SCH ×3 (02:00→14:00)
[2021-11-02 05:17] LABS: BUN Blood Urea Nitrogen 13 mg/dL (7-18); Bicarbonate 32 mmol/L (21-32); Glucose Level 262 mg/dL (74-106); Magnesium 1.7 mg/dL (1.8-2.4); Potassium 3.7 mmol/L (3.5-5.1); Sodium Level 137 mmol/L (136-145)
[2021-11-02] MEDS: RIVAROXABAN 20 MG TABLET PO SCH (08:37)
[2021-11-02] MEDS: ASPIRIN EC 81 MG TAB PO SCH (08:37)
[2021-11-02] MEDS: POTASSIUM 25 MEQ EFFERV TAB PO SCH ×2 (08:38→20:23)
[2021-11-02] MEDS: METFORMIN HCL 500 MG TAB PO SCH ×2 (08:38→17:26)
[2021-11-02] MEDS: PANTOPRAZOLE 40MG TABLET PO SCH (08:38)
[2021-11-02] MEDS: FUROSEMIDE 40 MG/4 ML VIAL IV SCH (08:38)
[2021-11-02] MEDS: CLOPIDOGREL 75 MG TABLET PO SCH (08:38)
[2021-11-02] MEDS: lisinopriL 10 MG TAB PO SCH (08:41)
[2021-11-02] MEDS: VALSARTAN 80 MG TAB PO SCH (08:41)
[2021-11-02] MEDS: SOTALOL HCL 80 MG TAB PO SCH ×2 (08:41→20:22)
[2021-11-02] MEDS ORDERED: MAGNESIUM SULFATE 1 gm IVPB 1 GM/100 ML BAG IV ONE (09:00)
[2021-11-02] MEDS ORDERED: NA CHLORIDE 0.9% 250 ML ONE (09:48)
[2021-11-02] MEDS ORDERED: DIGOXIN 0.25 MG/ML AMP IV ONE (10:47)
[2021-11-02] MEDS ORDERED: ALBUMIN HUMAN 25% 0 ML IV ONE (15:16)
[2021-11-02] MEDS: ALBUMIN HUMAN 25% 12.5 GM, FUROSEMIDE 100 MG in NA CHLORIDE 0.9% 40 ML IV SCH ×2 (15:19→20:22)
[2021-11-02] MEDS ORDERED: LEVALBUTEROL 1.25 MG/3 ML NEB NEB PRN (15:44)
[2021-11-02] MEDS ORDERED: IPRATROPIUM BROM 0.5MG/2.5ML NEB PRN (15:44)
[2021-11-03] MEDS: METHYLPREDNISOLONE 125 MG INJ IV SCH ×3 (00:35→12:16)
[2021-11-03 06:15] VITALS: BMI 33.3
[2021-11-03 08:30] LABS: BUN Blood Urea Nitrogen 15 mg/dL (7-18); Bicarbonate 35 mmol/L (21-32); Glucose Level 293 mg/dL (74-106); Magnesium 1.7 mg/dL (1.8-2.4); Sodium Level 135 mmol/L (136-145)
[2021-11-03 08:32] LABS: Potassium 2.8 mmol/L (3.5-5.1)
[2021-11-03] MEDS: PANTOPRAZOLE 40MG TABLET PO SCH (08:44)
[2021-11-03] MEDS: METFORMIN HCL 500 MG TAB PO SCH (08:44)
[2021-11-03] MEDS: VALSARTAN 80 MG TAB PO SCH (08:45)
[2021-11-03] MEDS: lisinopriL 10 MG TAB PO SCH ×2 (08:45→08:46)
[2021-11-03] MEDS: RIVAROXABAN 20 MG TABLET PO SCH (08:45)
[2021-11-03] MEDS: CLOPIDOGREL 75 MG TABLET PO SCH (08:46)
[2021-11-03] MEDS: ASPIRIN EC 81 MG TAB PO SCH (08:46)
[2021-11-03] MEDS: SOTALOL HCL 80 MG TAB PO SCH (08:46)
[2021-11-03] MEDS ORDERED: KCL 20 MEQ/100 mL IVPB 20 MEQ/100 ML BAG IV SCH (10:00)
[2021-11-03] MEDS ORDERED: POTASSIUM 25 MEQ EFFERV TAB PO ONE ×2 (10:36→16:06)
[2021-11-03] MEDS ORDERED: DIGOXIN 0.25 MG/ML AMP IV SCH (11:00)
[2021-11-03 12:34] VITALS: O2SAT 97
--- NOTE | 2021-11-03 14:20 | PN ---
Date of Progress Note: 11/03/2021 Subjective: Seen bedside. He is feeling much better. No further shortness of breath. No chest surekha n or palpitations. No nausea, vomiting, diarrhea. All other systems reviewed and are negative. Physical Examination: Vitals: Reviewed and were stable. Head and Neck: Pupils are equal, reactive to light. Intact eye movements. No JVD. No cervical. Ne ck is supple. Thyroid is not enlarged. Lungs: Clear to auscultation bilaterally. No rhonchi, rales, or crackles. No accessory muscle use. Heart: Regular rate and rhythm. No extra sounds. Abdomen: Soft, nontender. Bowel sounds positive. No organomegaly. No masses or hernia. No rigidi ty or rebound. Extremities: No edema, clubbing, cyanosis. Intact pulses. Skin: No rash. Neurologic: Alert, awake, oriented x3. No acute focal deficits appreciated. Investigations: Labs were reviewed. Assessment And Recommendations: 1.Acute on chronic diastolic heart failure. I recommend to resume Lasix by mouth 40 mg twice a day for the next 5 days and then once a day thereafter and please add potassium 20 mEq twice a day while he is on twice a day Lasix and then once a day after that. 2.Atrial fibrillation, rapid ventricular response. Heart rate is borderline. Add metoprolol 25 mg twice a day. The patient can be released from my standpoint and to follow up with Dr. Colorado early next week took carry on the medical management of his cardiac issues and thank you for the consult. Cardiology will sign off. SR/MODL Voice ID: [id number] Report ID: [id number]
--- NOTE | 2021-11-03 17:43 | CON ---
Date of Consultation: 11/02/2021 Reason For Consultation: CHF and atrial fibrillation with RVR. History Of Present Illness: This is a 56-year-old male, history of diabetes, hypertension, atrial fi brillation, acid reflux, presented with palpitations, shortness of breath, significant lower extremit y edema. No orthopnea. No chest pain. The patient follows up with Dr. Colorado as an outpatient bas is. Denies having any chest pain. After IV Lasix, the patient felt significantly better and no dist ress. Past Medical History: As outlined above in HPI. Hypertension, diabetes, acid reflux, and atrial fib rillation. Medications: Refer reconciliation sheet. Medications were reviewed. Allergies: NO KNOWN DRUG ALLERGIES. Family History: No premature coronary artery disease. Social History: Does not smoke or drink. Does not use any drugs. Review of Systems: All systems reviewed and are negative except as mentioned in HPI. Physical Examination: Vital Signs: Temperature is 98.7, heart rate 100, breathing at 16, blood pressure 140/59, saturating 96%. General: A pleasant middle-aged male, in no distress. Head and Neck: Pupils are equal, reactive to light. Intact eye movements. Mild JVD elevation. No cervical lymphadenopathy. Neck: Supple. Thyroid is not enlarged. Lungs: Crackles in both lung bases. No accessory muscle use or muscle retraction. Heart: Irregularly irregular. No extra sounds. Abdomen: Soft, nontender. Bowel sounds positive. No organomegaly. No masses or hernia. No rigidi ty or rebound. Extremities: No clubbing, cyanosis, but there is 3+ pedal edema. Skin: No rash. Neurologic: Alert, awake, oriented x3. No acute focal deficits appreciated. Investigations: Hemoglobin is 13, white blood cell count is 4.4. Sodium 137, BUN 13, creatinine 0.8 2, magnesium 1.7. Troponin x2 were negative. Assessment And Recommendations: 1.Acute on chronic diastolic heart failure exacerbation. Echo EF is normal. Agree with IV diuresis with Lasix 40 mg q.12 hours. Please replace the potassium and magnesium in an aggressive manner. 2.Atrial fibrillation. Rate is getting better. Continue sotalol and Xarelto. Introduce metoprolol IV 5 mg every 2-3 hours as needed for better rate control. Can introduce low dose of metoprolol 25 mg by mouth twice a day as well. Thank you for the consult. CHELSEA Voice ID: [id number] Report ID: [id number]
[2021-11-06 01:37] VITALS: BP 160/87; TEMP 97.9
--- NOTE | 2021-11-06 01:38 | P.PN ---
Date of Service: 11/02/21 Subjective Patient is clinically doing well. Patient feeling much better. Rate is controlled. Review of Systems 10-point ROS is otherwise unremarkable Physical Examination - Vital Signs Reviewed - Physical Exam General: Alert, In no apparent distress, Oriented x3 Respiratory: Clear to auscultation bilaterally, Normal air movement Cardiovascular: Normal S1 S2, No murmurs, Irregular heart rate/rhythm Gastrointestinal: Normal bowel sounds, Soft and benign, Non-distended, No tenderness Musculoskeletal: No clubbing, No swelling, No tenderness Neurological: Sensation intact, Cranial nerves 3-12 intact Assessment & Plan - Problems (Diagnosis) (1) Atrial fibrillation with rapid ventricular response Current Visit: Yes Status: Acute (2) Diastolic CHF, acute Current Visit: Yes Status: Acute (3) History of alcohol abuse Current Visit: Yes Status: Acute (4) History of cirrhosis Current Visit: Yes Status: Acute - Plan Continue with plan of care as mentioned below: 1. Resume sotalol 2. Anticoagulation 3. Continue with diuretics 4. Echocardiogram pending 5. Repeat chest x-ray 6. GI and DVT prophylaxis - Advance Directives Does patient have a Living Will: No Does patient have a Durable POA for Healthcare: No - Code Status/Comfort Care Code Status: Full Code
--- NOTE | 2021-11-06 01:39 | P.DS ---
Discharge Date: 11/03/21 Disposition: ROUTINE DISCHARGE Discharge Condition: GOOD Reason for Admission: Atrial fibrillation with rapid ventricular response/CHF exacerbation - Problems (1) Atrial fibrillation with rapid ventricular response Status: Acute (2) Diastolic CHF, acute Status: Acute (3) History of alcohol abuse Status: Acute (4) History of cirrhosis Status: Acute Brief History of Present Illness: Patient is a 56 year old gentleman who came to the hospital with palpitations and dyspnea. Patient was found to have atrial fibrillation with rapid ventricular response. Patient also was short of breath. Patient appeared to have acute CHF exacerbation. Patient was started on diuretics and medication for rate control. Echocardiogram is pending. Patient will be admitted for further evaluation. Hospital Course: Patient did well during hospital stay. Patient's heart rate is controlled. Patient's clinical condition is much better. At this time, patient is stable for discharge home. Vital Signs/Physical Exam: Temp Pulse Resp BP Pulse Ox 97.9 F 102 H 16 160/87 H 95 11/06/21 01:37 11/06/21 01:37 11/06/21 01:37 11/06/21 01:37 11/06/21 01:37 General: Alert, In no apparent distress, Oriented x3 Laboratory Data at Discharge: WBC 4.40 K/uL (4.3-10.9) D 11/01/21 04:09 Hgb 13.0 g/dL (13.6-17.9) L 11/01/21 04:09 Hct 40.7 % (39.6-49.0) 11/01/21 04:09 Plt Count 222 K/uL (152-406) 11/01/21 04:09 PT 14.5 SECONDS (9.5-12.5) H 10/31/21 14:44 INR 1.26 10/31/21 14:44 Sodium 135 mmol/L (136-145) L 11/03/21 07:57 Potassium 3.2 mmol/L (3.5-5.1) L 11/03/21 15:07 BUN 15 mg/dL (7-18) 11/03/21 07:57 Creatinine 0.83 mg/dL (0.55-1.3) 11/03/21 07:57 Glucose 293 mg/dL (74-106) H 11/03/21 07:57 Phosphorus 2.8 mg/dL (2.5-4.9) 11/01/21 04:09 Magnesium 1.7 mg/dL (1.8-2.4) L 11/03/21 07:57 Total Bilirubin 1.2 mg/dL (0.2-1.0) H 11/01/21 04:09 AST 45 U/L (15-37) H 11/01/21 04:09 ALT 35 U/L (12-78) 11/01/21 04:09 Alkaline Phosphatase 135 U/L (45-117) H 11/01/21 04:09 Troponin I < 0.02 ng/mL (0.0-0.045) 11/01/21 04:09 Home Medications: Lisinopril [Zestril] 10 mg PO DAILY 09/15/20 Metformin HCl 1,000 mg PO BID 09/15/20 Omeprazole [Prilosec] 40 mg PO DAILY 09/15/20 Rivaroxaban [Xarelto] 20 mg PO DAILY 30 Days #30 tablet 09/15/20 Sotalol HCl [Betapace*] 80 mg PO BID 30 Days #60 tab 09/15/20 Clopidogrel Bisulfate [Plavix*] 75 mg PO DAILY #30 tablet 11/02/21 Digoxin 125 mcg PO DAILY #30 tablet 11/02/21 Furosemide [Lasix] 20 mg PO BIDL #60 tab 11/02/21 Potassium Chloride [K-Dur] 10 meq PO BID #60 tab.er.prt 11/02/21 New Medications: Digoxin 125 mcg PO DAILY #30 tablet Potassium Chloride [K-Dur] 10 meq PO BID #60 tab.er.prt Furosemide [Lasix] 20 mg PO BIDL #60 tab Clopidogrel Bisulfate [Plavix*] 75 mg PO DAILY #30 tablet Physician Discharge Instructions: OK TO DC IV AND DC HOME FOLLOW-UP WITH PRIMARY CARE PROVIDER IN 1-2 WEEKS FOLLOW-UP WITH CARDIOLOGY IN 1-2 WEEKS RETURN TO THE ER IF symptoms worsened CALL or TEXT DR. PINEDA AT [phone] IF ANY QUESTIONS REGARDING HOSPITAL STAY. PLEASE CALL THE FLOOR AT [phone] IF ANY MEDICATION OR NURSING QUESTIONS. Diet: ADA Activity: Fall precautions Followup: [facility] [Provider Group] Claudio Begum PA [Primary Care Provider] - Time spent managing pt's care (in minutes): 35
--- NOTE | 2021-11-06 08:33 | ECHO ---
HEIGHT: 5 ft 9 in WEIGHT: 225 lb 4.8 oz DATE OF STUDY: 11/02/[address]: Radha Harris MD 2-DIMENSIONAL: YES M.MODE: YES DOPPLER: YES COLOR FLOW: YES TDS: PORTABLE: DEFINITY: BUBBLE STUDY: DIAGNOSIS: CONGESTIVE HEART FAILURE CARDIAC HISTORY: CATHERIZATION: YES SURGERY: NO PROSTHETIC VALVE: NO PACEMAKER: NO MEASUREMENTS (cm) DIASTOLIC (NORMALS) SYSTOLIC (NORMALS) IVSd 1.3 (0.6-1.2) LA Diam 3.5 (1.9-4.0) LVEF 69% LVIDd 5.5 (3.5-5.7) LVIDs 3.4 (2.0-3.5) %FS 39% LVPWd 1.4 (0.6-1.2) Ao Diam 3.2 (2.0-3.7) 2 DIMENSIONAL ASSESSMENT: RIGHT ATRIUM: NORMAL LEFT ATRIUM: ENLARGED RIGHT VENTRICLE: NORMAL LEFT VENTRICLE: NORMAL TRICUSPID VALVE: MILD TRICUSPID REGURGITATION MITRAL VALVE: NORMAL PULMONIC VALVE: NORMAL AORTIC VALVE: NORMAL PERICARDIAL EFFUSION: NONE AORTIC ROOT: NORMAL LEFT VENTRICULAR WALL MOTION: NORMAL DOPPLER/COLOR FLOW: SEE BELOW COMMENTS: NORMAL LEFT VENTRICULAR EJECTION FRACTION 55-60%. ATRIAL FIBRILLATION. LEFT ATRIAL ENLARGEMENT. MILD MITRAL REGURGITATION, MILD TRICUSPID REGURGITATION. PULMONARY HYPERTENSION WITH RIGHT VENTRICULAR SYSTOLIC PRESSURE OF 50-55 mmHg. TECHNOLOGIST: SANG GORDON
== END 2021-11-03 16:46 | disposition home or self-care (01) | DRG 291 ==
LOC: ER 12:16 → ERHOLD 17:03 → 2ND 20:09
PROVIDERS: ADMIT Hospitalist; ATTEND Hospitalist
DX: I11.0 Hypertensive heart disease with heart failure (principal); I50.31 Acute diastolic (congestive) heart failure; I48.91 Unspecified atrial fibrillation; K21.9 Gastro-esophageal reflux disease without esophagitis; E11.9 Type 2 diabetes mellitus without complications; R00.0 Tachycardia, unspecified; R06.00 Dyspnea, unspecified; Z79.84 Long term (current) use of oral hypoglycemic drugs; Z79.899 Other long term (current) drug therapy; Z79.02 Long term (current) use of antithrombotics/antiplatelets; Z79.01 Long term (current) use of anticoagulants; Z20.822 Contact with and (suspected) exposure to COVID-19; Z23 Encounter for immunization
CPT/HCPCS: 36415; 71046; 80048; 80053; 80076; 82947; 83735; 83880; 84100; 84132; 84484; 85025; 85610; 90471; 90732; 93005; 93306; 94640; 96365; 96366; 96375; 99285; J1160; J1650; J1940; J2930; J3475; J3480; J7050; P9047; Q2035; U0003

== ENCOUNTER 2021-11-24 06:27 | Day surgery (SDC) | payer OTHER ==
[2021-11-21 12:04] LABS: Absolute Lymphocytes (CBC) 1.6 K/uL (0.7-4.9); Hematocrit 42.9 % (39.6-49.0); Lymphocytes % 28.9 % (15.3-44.8); MPV 8.6 fL (7.6-11.3); RBC Red Blood Cell Count 5.28 M/uL (4.33-5.43)
[2021-11-21 12:08] LABS: Protime INR 2.85
[2021-11-21 12:18] LABS: BUN Blood Urea Nitrogen 11 mg/dL (7-18); Bicarbonate 28 mmol/L (21-32); Glucose Level 119 mg/dL (74-106); Potassium 3.4 mmol/L (3.5-5.1); Sodium Level 137 mmol/L (136-145)
[2021-11-24] MEDS ORDERED: NA CHLORIDE 0.9% 500 ML ONE (06:50)
[2021-11-24 07:06] VITALS: TEMP 97.7
[2021-11-24] MEDS ORDERED: METOPROLOL TARTRATE 5 MG/5 ML INJ IV ONE (07:15)
[2021-11-24] MEDS ORDERED: ATROPINE SULF 1 MG/10 ML SYR IV ONE ×2 (07:15→07:42)
[2021-11-24] MEDS ORDERED: FLUMAZENIL 0.1 MG/ML (5 mL VIAL) IV ONE ×2 (07:15→07:42)
[2021-11-24] MEDS ORDERED: MIDAZOLAM HCL 15 ML ONE (07:15)
[2021-11-24] MEDS ORDERED: MIDAZOLAM HCL 2 MG/2 ML INJ ONE (07:42)
[2021-11-24 08:55] VITALS: BP 138/82; O2SAT 100
--- NOTE | 2021-11-24 19:32 | OP ---
Date of Procedure: 11/24/2021 Surgeon: Jan Colorado MD Farm Demonstrator: Jaylyn Sousa. Procedure: Direct current cardioversion. Indication: Atrial fibrillation. History Of Present Illness: Mr. Garcia is 56, has had paroxysmal atrial fibrillation and has been in normal rhythm on sotalol. However, he went back into atrial fibrillation on sotalol 80 b.i.d. He w as symptomatic. Procedure In Detail: Brought to the packing house laborer today. He was prepped with a total of 11 mg of Versed for total sedation. Paddles were placed anteriorly and posteriorly in the chest. He initially recei tanya 100 joules and then another 200 joules, and in both of them, he remained in atrial fibrillation, and shock with 360 joules put him back in normal rhythm. He tolerated the procedure well. There wer e no complications or blood loss. Anesthesia: Total conscious sedation was 30 minutes. Final Diagnosis: Successful cardioversion from atrial fibrillation to sinus rhythm. We will continu e his Xarelto and sotalol and he will see me in the office in 2 weeks. He can go home after he wakes up. JENNIFER/AUGUSTUS Voice ID: [id number] Report ID: [id number]
--- NOTE | 2021-11-25 15:16 | EKG ---
Test Date: 2021-11-24 Test Time: 07:49:57 Mail Distribution Scheme Examiner: MAKENZIE MEASUREMENT RESULTS: Intervals: Rate: 67 NH: 198 QRSD: 98 QT: 458 QTc: 483 [place]: P: 31 NH: 198 QRS: -8 T: -17 INTERPRETIVE STATEMENTS: Normal sinus rhythm Possible Left atrial enlargement Cannot rule out Inferior infarct, age undetermined Cannot rule out Anterior infarct, age undetermined Abnormal ECG Compared to ECG 10/31/2021 13:31:38 Atrial fibrillation no longer present Ventricular premature complex(es) no longer present Myocardial infarct finding still present Electronically Signed On 11-25-21 15:14:44 PULLEY WORKER by Jan Colorado
== END 2021-11-24 09:32 | disposition home or self-care (01) ==
LOC: CCL 06:27
DX: I48.0 Paroxysmal atrial fibrillation (principal); I11.0 Hypertensive heart disease with heart failure; I50.31 Acute diastolic (congestive) heart failure; E78.2 Mixed hyperlipidemia; E11.9 Type 2 diabetes mellitus without complications; K21.9 Gastro-esophageal reflux disease without esophagitis; E66.9 Obesity, unspecified; Z68.34 Body mass index [BMI] 34.0-34.9, adult
CPT/HCPCS: 93005; 85025; 80048; 36415; 85610; 82947; 85730; 92960; U0002; J2250 ×2; J7040

== ENCOUNTER 2024-08-10 11:35 | Day surgery (SDC) | payer OTHER ==
[2024-08-06 13:23] LABS: Absolute Basophils 0.1 K/uL (0-0.5); Absolute Eosinophils 0.3 K/uL (0-0.5); Absolute Lymphocytes (CBC) 1.7 K/uL (0.7-4.9); Absolute Monocytes 0.8 K/uL (0.1-1.3); Absolute Neutrophil 3.2 K/uL (1.8-8.0); Basophils % 1.5 % (0-1.3); Eosinophils % 5.2 % (0-4.4); Hematocrit 39.2 % (39.6-49.0); Hemoglobin 12.9 g/dL (13.6-17.9); Lymphocytes % 27.9 % (15.3-44.8); MCH 31.1 pg (27.0-35.0); MCV 94.2 fL (80-100); MPV 8.8 fL (7.6-11.3); Monocytes % 13.3 % (3.3-12.3); Neutrophils % 52.1 % (41.7-73.7); Platelets 222 thou/uL (152-406); RBC Red Blood Cell Count 4.16 M/uL (4.33-5.43); Red Cell Distribution Width 14.2 % (12.1-15.2)
--- NOTE | 2024-08-06 13:27 | RAD REPORT ---
EXAMINATION: TWO VIEW CHEST XR CLINICAL INDICATION: PRE OP TECHNIQUE: 2 views of the chest was performed. COMPARISON: 10/23/2021, 09/14/2020 FINDINGS: The lungs are well inflated and clear. The heart is upper limit of normal in size. No displaced fract ures evident. IMPRESSION: No acute or significant abnormalities. The USPSTF recommends annual screening for lung cancer with low-dose computed tomography (LDCT) in ad ults aged 50 to 80 years who have a 20 pack-year smoking history and currently smoke or have quit within the past 15 years. Screening should be discontinued once a person has not smoked for 15 years or develops a health problem that substantially limits life expectancy or the ability or willingness to have curative lung surgery. Cancer screening
[2024-08-06 13:28] LABS: PT Prothrombin Time 38.6 SECONDS (9.4-12.5); PTT, Activated Partial Thromb 52.2 SECONDS (24.3-36.9); Protime INR 3.58
[2024-08-06 13:37] LABS: Anion Gap 9.3 mEq/L (5.0-15.0); Potassium 3.3 mEq/L (3.5-5.1)
--- NOTE | 2024-08-07 16:36 | EKG ---
Test Date: 2024-08-06 Test Time: 13:09:15 Reimbursement Director: CLINTON MEASUREMENT RESULTS: Intervals: Rate: 119 [place]: QRSD: 96 QT: 340 QTc: 478 [place]: P: NH: QRS: 19 T: 28 INTERPRETIVE STATEMENTS: Atrial fibrillation with rapid ventricular response with premature ventricular or aberrantly conducted complexes Nonspecific ST abnormality, probably digitalis effect Abnormal ECG Compared to ECG 11/24/2021 07:49:57 Ventricular premature complex(es) now present ST (T wave) deviation now present Sinus rhythm no longer present Myocardial infarct finding no longer present Electronically Signed On 08-07-24 16:32:26 CDT by Jay Castro
[2024-08-10] MEDS ORDERED: NA CHLORIDE 0.9% 500 ML ONE (12:07)
[2024-08-10 12:20] VITALS: TEMP 97.2
[2024-08-10] MEDS ORDERED: HEPARIN 10,000 UNIT/10 ML VIAL IV ONE (12:42)
[2024-08-10] MEDS ORDERED: HEPA 1000U/500MLS 2,000 UNIT/1,000 ML BAG IV ONE (12:42)
[2024-08-10] MEDS ORDERED: VERAPAMIL HCL 10 MG/4 ML VIAL IV ONE (12:43)
[2024-08-10] MEDS ORDERED: LIDOCAINE 1% 20 ML MDV ONE (12:43)
[2024-08-10] MEDS ORDERED: ATROPINE SULF 1 MG/10 ML SYR IV ONE (12:43)
[2024-08-10] MEDS ORDERED: HEPARIN 5000 UNIT/ML 1 ML VIAL ONE (12:43)
[2024-08-10] MEDS ORDERED: TICAGRELOR 90 MG TABLET PO ONE (12:44)
[2024-08-10] MEDS ORDERED: ASPIRIN 325 MG TAB ONE (12:44)
[2024-08-10] MEDS ORDERED: CLOPIDOGREL 75 MG TABLET ONE (12:44)
[2024-08-10] MEDS ORDERED: MIDAZOLAM HCL 2 MG/2 ML INJ ONE (12:45)
[2024-08-10] MEDS ORDERED: FENTANYL CITR 100 MCG/2 ML ONE (12:45)
[2024-08-10 16:09] VITALS: BP 159/80; O2SAT 98
--- NOTE | 2024-08-11 01:39 | OP ---
Date of Procedure: 08/10/2024 Surgeon: CAMILO JACQUES Procedures Performed: 1.Selective coronary angiogram. 2.Left heart catheterization. Indications: Chest pain, abnormal stress test. Access: Right radial artery, 6-Welsh, closed with TR band. Complications: None. Bleeding: Less than 50 mL. Total Sedation Time: 45 minutes, used fentanyl and Versed. Description Of Procedure: After risks, benefits, and alternatives were explained, the patient agreed to the procedure and signed informed consent. The patient was brought into cardiac catheterization laboratory, prepped and draped in usual sterile fashion. Then I accessed right radial artery using Bolt HR micropuncture kit. Placed 6-Welsh Slender sheath and took 5-Welsh [place] 4 catheter into t he aortic root over a J-wire, across the aortic valve, measured the LVEDP. Pullback did not record a ny gradient. Then engaged the left main, took standard views. Then in the RCA, took standard views. Then removed the catheter and the sheath. Placed TR band with good hemostasis. Findings: 1.Left main is normal. 2.LAD: Large and normal. Normal diagonal branches. Distal LAD is with luminal irregularities. 3.Left circumflex: Large and normal. 4.RCA: Large and dominant with proximal 30% to 40%, the vessel is about 5 mm. 5.LVEDP is borderline between 10 to 12 mmHg. Conclusion: Psri-bp-ncpnirde nonobstructive coronary artery disease. Recommendation: Medical management. SR/MODL Voice ID: [id number] Report ID: [id number]
== END 2024-08-10 16:05 | disposition home or self-care (01) ==
LOC: CCL 11:35
PROVIDERS: ATTEND Internal Medicine
DX: I25.10 Atherosclerotic heart disease of native coronary artery without angina pectoris (principal); I11.0 Hypertensive heart disease with heart failure; I50.31 Acute diastolic (congestive) heart failure; I48.0 Paroxysmal atrial fibrillation; I51.7 Cardiomegaly; E78.2 Mixed hyperlipidemia; E11.9 Type 2 diabetes mellitus without complications; Z79.84 Long term (current) use of oral hypoglycemic drugs; Z79.01 Long term (current) use of anticoagulants; Z79.899 Other long term (current) drug therapy; Z01.810 Encounter for preprocedural cardiovascular examination
CPT/HCPCS: 93005; 85025; 80048; 36415; 85610; 82947; 85730; 71046; 93458; 76937; C1893; Q9966; J1644; J2001; J2250; J3010; J7040; 99152; 99153; J0461

== ENCOUNTER 2024-08-13 10:55 | Day surgery (SDC) | payer OTHER ==
[2024-08-12 11:02] LABS: Absolute Basophils 0.1 K/uL (0-0.5); Absolute Eosinophils 0.4 K/uL (0-0.5); Absolute Lymphocytes (CBC) 1.6 K/uL (0.7-4.9); Absolute Monocytes 0.9 K/uL (0.1-1.3); Basophils % 1.3 % (0-1.3); Eosinophils % 6.1 % (0-4.4); Hematocrit 37.2 % (39.6-49.0); Hemoglobin 12.2 g/dL (13.6-17.9); Lymphocytes % 27.3 % (15.3-44.8); MCH 31.2 pg (27.0-35.0); MCHC 32.8 g/dL (32.0-36.0); MCV 95.1 fL (80-100); MPV 8.6 fL (7.6-11.3); Monocytes % 15.1 % (3.3-12.3); Neutrophils % 50.2 % (41.7-73.7); Platelets 204 thou/uL (152-406); RBC Red Blood Cell Count 3.92 M/uL (4.33-5.43); Red Cell Distribution Width 14.8 % (12.1-15.2)
[2024-08-12 11:07] LABS: PT Prothrombin Time 41.3 SECONDS (9.4-12.5); PTT, Activated Partial Thromb 56.7 SECONDS (24.3-36.9); Protime INR 3.83
[2024-08-12 11:14] LABS: Anion Gap 9.2 mEq/L (5.0-15.0); Potassium 4.2 mEq/L (3.5-5.1)
[2024-08-13] MEDS ORDERED: NA CHLORIDE 0.9% 500 ML ONE (10:58)
[2024-08-13] MEDS ORDERED: propofoL 200 MG/20 ML VIAL IV ONE ×2 (12:57→13:02)
[2024-08-13] MEDS ORDERED: LIDOCAINE 1% MPF 5 ML VIAL ONE (13:08)
[2024-08-13 13:23] VITALS: TEMP 97.8
[2024-08-13 13:30] VITALS: BP 130/68; O2SAT 96
--- NOTE | 2024-08-13 16:50 | EKG ---
Test Date: 2024-08-13 Test Time: 13:33:02 Director Of Oncology: MAKENZIE MEASUREMENT RESULTS: Intervals: Rate: 61 RI: 202 QRSD: 90 QT: 460 QTc: 463 [place]: P: 59 RI: 202 QRS: 37 T: 61 INTERPRETIVE STATEMENTS: Normal sinus rhythm Possible Left atrial enlargement Septal infarct, age undetermined Abnormal ECG Compared to ECG 08/12/2024 10:39:20 Myocardial infarct finding now present Atrial fibrillation no longer present Electronically Signed On 08-13-24 16:49:47 CDT by Jay Castro
--- NOTE | 2024-08-13 16:55 | EKG ---
Test Date: 2024-08-12 Test Time: 10:39:20 Personnel Director: KENTRELL MEASUREMENT RESULTS: Intervals: Rate: 76 [place]: QRSD: 102 QT: 396 QTc: 445 [place]: P: [place]: QRS: 47 T: 54 INTERPRETIVE STATEMENTS: Atrial fibrillation Abnormal ECG Compared to ECG 08/06/2024 13:09:15 Ventricular premature complex(es) no longer present ST (T wave) deviation no longer present Electronically Signed On 08-13-24 16:50:50 CDT by Jay Castro
--- NOTE | 2024-08-13 20:09 | OP ---
Date of Procedure: 08/13/2024 Surgeon: CAMILO JACQUES Procedures Performed: 1.Transesophageal echocardiogram. 2.Electrical cardioversion from atrial fibrillation to normal sinus rhythm. Diagnosis: Atrial fibrillation with difficult to control heart rate. Description Of Procedure: After risks, benefits, and alternatives were explained, patient agreed to procedure and signed informed consent. The patient was brought into the cystoscopy room after deep s edation was applied. After proper time-out, MINI probe was inserted. There was no left atrial append age thrombus. MINI probe was removed and then synchronized 200 joule. Electrical cardioversion was p erformed, successfully converted the rhythm into normal sinus rhythm. The patient was [facility] condition. Conclusion: Successful MINI-guided electrical cardioversion. SR/MODL Voice ID: [id number] Report ID: [id number]
--- NOTE | 2024-08-14 09:18 | TEE ---
TRANSESOPHAGEAL ECHOCARDIOGRAM REPORT CARDIOLOGY DEPARTMENT DATE OF STUDY: 08/13/2024 HEIGHT: 6'8 WEIGHT: 209 DIAGNOSIS: ATRIAL FIBRILLATION 2 DIMENSIONAL ASSESSMENT: RIGHT ATRIUM: [*] LEFT ATRIUM: [*] RIGHT VENTRICLE: [*] LEFT VENTRICLE: [*] TRICUSPID VALVE: [*] MITRAL VALVE: [*] PULMONIC VALVE: [*] AORTIC VALVE: [*] PERICARDIAL EFFUSION: [*] AORTIC ROOT: [*] EJECTION FRACTION: 55-60 % COMMENTS: 1. MINI PROBE WAS INSERTED WITH NO DIFFICULTY. 2. NO LEFT ATRAIL APPENDAGE THROMBUS IS SEEN. 3. NORMAL LEFT VENTRICULAR EJECTION FRACTION 55-60%. TECHNOLOGIST: RONALD ROLDAN
== END 2024-08-13 13:50 | disposition home or self-care (01) ==
LOC: CCL 10:55
PROVIDERS: ATTEND Internal Medicine
DX: I48.91 Unspecified atrial fibrillation (principal); I10 Essential (primary) hypertension
CPT/HCPCS: 93005 ×2; 93312; 85025; 80048; 36415; 85610; 85730; 92960; J2704; J2001; J7040; 01922

== ENCOUNTER 2025-01-12 06:30 | Day surgery (SDC) | payer OTHER ==
[2025-01-07 16:09] LABS: Absolute Basophils 0.1 K/uL (0-0.5); Absolute Eosinophils 0.2 K/uL (0-0.5); Absolute Lymphocytes (CBC) 1.2 K/uL (0.7-4.9); Absolute Monocytes 0.8 K/uL (0.1-1.3); Absolute Neutrophil 2.3 K/uL (1.8-8.0); Basophils % 1.4 % (0-1.3); Eosinophils % 5.3 % (0-4.4); Hematocrit 34.8 % (39.6-49.0); Hemoglobin 11.6 g/dL (13.6-17.9); Lymphocytes % 26.2 % (15.3-44.8); MCH 28.1 pg (27.0-35.0); MCHC 33.2 g/dL (32.0-36.0); MCV 84.6 fL (80-100); MPV 8.9 fL (7.6-11.3); Monocytes % 17.5 % (3.3-12.3); Neutrophils % 49.6 % (41.7-73.7); Nucleated Red Blood Cells % 0.1 % (0-0); Platelets 158 thou/uL (152-406); RBC Red Blood Cell Count 4.12 M/uL (4.33-5.43); Red Cell Distribution Width 16.1 % (12.1-15.2)
[2025-01-07 16:18] LABS: Anion Gap 9.4 mEq/L (5.0-15.0); Potassium 3.4 mEq/L (3.5-5.1)
[2025-01-07 16:24] LABS: PT Prothrombin Time 13.2 SECONDS (10.0-13.0); Protime INR 1.17
[2025-01-07 16:25] LABS: PTT, Activated Partial Thromb 38.1 SECONDS (24.3-36.9)
[2025-01-12] MEDS ORDERED: NA CHLORIDE 0.9% 500 ML ONE (06:45)
[2025-01-12] MEDS ORDERED: VERAPAMIL HCL 10 MG/4 ML VIAL IV ONE (07:22)
[2025-01-12] MEDS ORDERED: HEPARIN 10,000 UNIT/10 ML VIAL IV ONE (07:22)
[2025-01-12] MEDS ORDERED: HEPA 1000U/500MLS 2,000 UNIT/1,000 ML BAG IV ONE (07:22)
[2025-01-12] MEDS ORDERED: LIDOCAINE 1% 20 ML MDV ONE (07:22)
[2025-01-12] MEDS ORDERED: ATROPINE SULF 1 MG/10 ML SYR IV ONE (07:23)
[2025-01-12] MEDS ORDERED: HEPARIN 5000 UNIT/ML 1 ML VIAL ONE (07:23)
[2025-01-12] MEDS ORDERED: FENTANYL CITR 100 MCG/2 ML ONE (07:23)
[2025-01-12] MEDS ORDERED: MIDAZOLAM HCL 2 MG/2 ML INJ ONE (07:23)
--- NOTE | 2025-01-12 08:54 | OP ---
Date of Procedure: 01/12/2025 Surgeon: CAMILO JACQUES Procedure Performed: Peripheral angiogram with runoff. Indication: Peripheral vascular disease with claudication. Access: Right radial artery, 6-Algerian, closed with TR band. Complications: None. Bleeding: Less than 50 mL. Total Sedation Time: 45 minutes, used fentanyl and Versed. Description Of Procedure: After risks, benefits, and alternatives were explained, the patient agreed to procedure and signed informed consent. [email or web address] prepped and draped in usual sterile fashion. Then, I accessed right radial artery using pedi [email or web address] micropuncture kit, placed 6-Algerian slender sheath and took a long 4-Algerian pigtail catheter, pl aced in distal aorta and performed distal aortogram and runoff. Then, catheter was advanced into the common femoral artery on the left and did [id number] DSA and the same thing on the right side, a nd then removed the catheter and the sheath, placed TR band with good hemostasis. Findings: 1. Distal aorta: Widely patent. 2. Right lower extremity: Right common iliac, external iliac, internal iliac, common femoral, and pr ofunda widely patent. The right SFA is patent with 20% distally. The popliteal is with 20%. Anteri or tibial, tibial trunk, posterior tibial, and peroneal are all widely patent. 3. Left lower extremity: Common iliac, external iliac, common femoral are all normal. Profunda is n ormal and SFA has 40% proximally and 20% distally. Popliteal and triple-vessel runoff below the knee are all widely patent. Conclusion: Mild peripheral vascular disease. Recommendation: Medical management. SR/MODL Voice ID: [id number] Report ID: [id number]
[2025-01-12 09:05] VITALS: TEMP 97.2
[2025-01-12 10:28] VITALS: BP 136/47; O2SAT 96
--- NOTE | 2025-01-12 11:21 | EKG ---
Test Date: 2025-01-07 Test Time: 15:52:47 Wind Turbine Design Engineer: MARCO MEASUREMENT RESULTS: Intervals: Rate: 63 SD: 184 QRSD: 102 QT: 480 QTc: 491 [place]: P: 60 SD: 184 QRS: 52 T: 87 INTERPRETIVE STATEMENTS: Normal sinus rhythm ST elevation, consider inferior injury or acute infarct Prolonged QT ACUTE MN Consider right ventricular involvement in acute inferior infarct Abnormal ECG Compared to ECG 08/13/2024 13:33:02 ST (T wave) deviation now present Prolonged QT interval now present Myocardial infarct finding still present Electronically Signed On 01-12-25 11:06:10 CDT by Rufino Stone
== END 2025-01-12 10:42 | disposition home or self-care (01) ==
LOC: PRE 06:30 → CCL 10:42
PROVIDERS: ATTEND Internal Medicine
DX: I70.223 Atherosclerosis of native arteries of extremities with rest pain, bilateral legs (principal); I25.10 Atherosclerotic heart disease of native coronary artery without angina pectoris; I11.0 Hypertensive heart disease with heart failure; I50.31 Acute diastolic (congestive) heart failure; I48.0 Paroxysmal atrial fibrillation; E11.9 Type 2 diabetes mellitus without complications; E78.2 Mixed hyperlipidemia; Z79.01 Long term (current) use of anticoagulants; Z79.4 Long term (current) use of insulin; Z79.899 Other long term (current) drug therapy; Z79.85 Long-term (current) use of injectable non-insulin antidiabetic drugs
CPT/HCPCS: 93005; 85025; 80048; 36415; 85610; 82947; 85730; 75625; 36246; 75716; 76937; C1893; J1644; J2003; J2250; J3010; J7040; 36200; 36245; 75630; 99152; 99153; J0461